=== PATIENT | female | born 1935 | race Caucasian/White ===

== ENCOUNTER → 2016-07-15 | Outpatient (CLI) | payer MEDICARE, OTHER | END | disposition home or self-care (01) | LOC: GMAL 10:08 | PROVIDERS: ATTEND Family Medicine | DX: R53.83 Other fatigue (principal); D51.3 Other dietary vitamin B12 deficiency anemia; E55.9 Vitamin D deficiency, unspecified ==

== ENCOUNTER 2016-10-29 08:08 | Inpatient (IN) | payer MEDICARE, OTHER ==
[2016-10-29] MEDS ORDERED: HYDROmorphone HCL INJ 2 MG/ML VIAL IV ONE (08:46)
--- NOTE | 2016-10-29 09:40 | ED.PDOC ---
History of Present Illness - General Chief Complaint: Trauma Stated Complaint: left hip pain Time Seen by Provider: 10/29/16 08:11 Source: patient, family Exam Limitations: no limitations - History of Present Illness Initial Comments: the patient is a 81-year-old female presenting to the emergency room secondary to a fall at home with significant left hip pain. The patient simply tripped and fell. No syncope. No other areas of pain. The patient is drowsy upon arrival due to pain medications given by EMS. No obvious other injuries. Timing/Duration: momentarily Severity: severe Improving Factors: nothing Worsening Factors: nothing Associated Symptoms: denies symptoms Allergies/Adverse Reactions: Allergies NO KNOWN ALLERGY Allergy (Verified 10/29/16 08:46) Review of Systems - Review of Systems Constitutional: States: no symptoms reported EENTM: States: no symptoms reported Respiratory: States: no symptoms reported Cardiology: States: no symptoms reported Gastrointestinal/Abdominal: States: no symptoms reported Genitourinary: States: no symptoms reported Musculoskeletal: States: see HPI Skin: States: no symptoms reported Neurological: States: no symptoms reported Endocrine: States: no symptoms reported Hematologic/Lymphatic: States: no symptoms reported All other Systems: No Change from Baseline Past Medical History (General) - Patient Medical History Surgical History: other Family Medical History - Family History Mother Family History: Unknown Physical Exam - Physical Exam General Appearance: Other - she is drowsy but easily awakened and oriented Eye Exam: bilateral normal Ears, Nose, Throat: hearing grossly normal, normal ENT inspection, normal pharynx Neck: non-tender, full range of motion, supple Respiratory: chest non-tender, lungs clear, normal breath sounds, no respiratory distress, no accessory muscle use Cardiovascular/Chest: normal peripheral pulses, no edema, other - egular rate Peripheral Pulses: radial,right: 2+, radial,left: 2+, dorsalis pedis,right: 2+, dorsalis pedis,left: 2+, posterior tibialis,right: 2+, posterior tibialis,left: 2+ Gastrointestinal/Abdominal: non tender, soft Rectal Exam: deferred Back Exam: normal inspection, no CVA tenderness, no vertebral tenderness Extremity: no pedal edema, no calf tenderness, normal capillary refill, other - there is slight shortening and external rotation of the left lower extremity. She has pain over the left hip. No laceration. 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 The patient will be admitted for surgical repair tomorrow. Pain control will obviously be required. She appears to be neurovascularly preserved at this time. - Results/Orders Results/Orders: Laboratory Last Values WBC 8.4 K/mm3 (4.8-10.8) 10/29/16 09:15 RBC 4.46 M/mm3 (4.20-5.40) 10/29/16 09:15 Hgb 12.8 gm/dL (12.0-16.0) 10/29/16 09:15 Hct 39.4 % (36.0-47.0) 10/29/16 09:15 MCV 88.5 fl (81.0-99.0) 10/29/16 09:15 MCH 28.8 pg (27.0-31.0) 10/29/16 09:15 MCHC 32.5 g/dL (33.0-37.0) L 10/29/16 09:15 RDW 14.4 % (11.5-14.5) 10/29/16 09:15 Plt Count 220 K/mm3 (130-400) 10/29/16 09:15 MPV 7.0 fl (7.40-10.4) L 10/29/16 09:15 Absolute Neuts (auto) 6.40 K/uL (1.8-6.8) 10/29/16 09:15 Absolute Lymphs (auto) 1.40 K/uL (1.0-3.4) 10/29/16 09:15 Absolute Monos (auto) 0.50 K/uL (0.2-0.8) 10/29/16 09:15 Absolute Eos (auto) 0.10 K/uL (0.0-0.4) 10/29/16 09:15 Absolute Basos (auto) 0.00 K/uL (0.0-0.1) 10/29/16 09:15 Neutrophils % 76.4 % (42.0-78.0) 10/29/16 09:15 Lymphocytes % 16.7 % (20.0-50.0) L 10/29/16 09:15 Monocytes % 5.5 % (2.0-9.0) 10/29/16 09:15 Eosinophils % 1.0 % (1.0-5.0) 10/29/16 09:15 Basophils % 0.4 % (0.0-2.0) 10/29/16 09:15 PT 10.9 SECONDS (9.4-12.5) 10/29/16 09:15 INR 0.960 10/29/16 09:15 PTT (SP) 30.3 SECONDS (25.1-36.5) 10/29/16 09:15 Sodium 143 mmol/L (135-145) 10/29/16 09:15 Potassium 4.4 mmol/L (3.6-5.0) 10/29/16 09:15 Chloride 106 mmol/L (101-111) 10/29/16 09:15 Carbon Dioxide 28 mmol/L (21-31) 10/29/16 09:15 Anion Gap 13.4 (12-18) 10/29/16 09:15 BUN 18 mg/dL (7-18) 10/29/16 09:15 Creatinine 0.78 mg/dL (0.6-1.3) 10/29/16 09:15 BUN/Creatinine Ratio 23.1 (10-20) H 10/29/16 09:15 Random Glucose 109 mg/dL (70-105) H 10/29/16 09:15 Serum Osmolality 287.5 mOsm/L (275-295) 10/29/16 09:15 Calcium 8.6 mg/dL (8.4-10.2) 10/29/16 09:15 Total Bilirubin 0.8 mg/dL (0.2-1.0) 10/29/16 09:15 AST 17 IU/L (10-42) 10/29/16 09:15 ALT 10 IU/L (10-60) 10/29/16 09:15 Alkaline Phosphatase 64 IU/L (42-121) 10/29/16 09:15 Serum Total Protein 7.2 gm/dL (6.4-8.2) 10/29/16 09:15 Albumin 4.0 g/dl (3.2-5.5) 10/29/16 09:15 Globulin 3.2 gm/dL (2.3-3.5) 10/29/16 09:15 Albumin/Globulin Ratio 1.3 (1.1-1.9) 10/29/16 09:15 x-ray of the left hip shows a proximal left femur fracture. I see no obvious pelvic fractures. Final read on x-rays are pending due to technical difficulties. Departure - Departure Clinical Impression: Fracture of femur Qualifiers: Encounter type: initial encounter Femur location: intertrochanteric Fracture type: closed Fracture alignment: displaced Laterality: left Qualified Code(s): S72.142A - Displaced intertrochanteric fracture of left femur, initial encounter for closed fracture Disposition: Admit Patient Referrals: Stanislaw Caballero III, MD [Primary Care Provider] - 1-2 Weeks Decision To Admit - Decistion To Admit Decision to Admit Reason: Accidental Injury Decision to Admit Date: 10/29/16 Decision to Admit Time: 09:42
--- NOTE | 2016-10-29 10:54 | HP ---
SUPERVISING PHYSICIAN: Srinivas Patel M.D. CHIEF COMPLAINT: Left hip pain. HISTORY OF PRESENT ILLNESS: This is an 81 year-old female patient who presented to the Emergency Room after falling in her bedroom and having significant left hip pain. This morning about 7:00 AM she got up from her bed and went to her bathroom, and as she was coming back to the bed, she stepped on her 's golf shoes and she fell against the bed and then fell onto the floor. She had significant pain in the left hip. Her called 911 and she was brought to the Emergency Room. In the Emergency Room, her CBC was within normal limits with the exception of her MCHC was 32.5 and her chemistry was also basically within normal limits with the exception of her glucose was slightly elevated at 109. Coags were within normal limits. Hip x-ray per radiology interpretation shows a subcapital left femoral neck fracture noted with approximately 2 cm of proximal displacement of the distal fracture fragment. Dr. Bay was called from the Emergency Room and he agreed to perform surgery tomorrow morning. I was called for hospital admission. PAST MEDICAL HISTORY: 1. Aortic stenosis of mild severity diagnosed in July 2016. 2. Essential tremor. 3. History of detached retina. 4. Broken right wrist. 5. Fractured left forearm. PAST SURGICAL HISTORY: 1. Detached retina surgery in the . 2. Elbow fracture repair in 2012. OUTPATIENT MEDICATIONS: 1. Gabapentin. 2. Alprazolam. ALLERGIES: NO KNOWN DRUG ALLERGIES. SOCIAL HISTORY: She is retired. She is . She has 4 children. She denies any tobacco, ETOH or illicit drug use. REVIEW OF SYSTEMS: Negative with the exception of her left hip pain and as per the History of Present Illness. PHYSICAL EXAMINATION: VITAL SIGNS: Temperature 97.4, pulse rate 76, blood pressure 128/70, respiratory rate 16, O2 sat is 96% on 1 liter nasal cannula. GENERAL: This is an 81 year-old female patient who is lying in her hospital bed. She is in no acute distress. HEENT: Normocephalic and atraumatic. Pupils are equal and reactive. Oropharynx is clear. NECK: Supple without mass. CHEST: Clear to auscultation bilaterally. There is equal rise and fall of the chest with inspiration and expiration. CARDIOVASCULAR: Regular rate and rhythm. ABDOMEN: Soft, nondistended, non-tender. Bowel sounds are positive. EXTREMITIES: No cyanosis, clubbing or edema. She is tender along the left lateral hip that extends to the posterior buttocks region. There is no swelling or edema noted. NEUROLOGIC: She is awake, alert and oriented times three. LABORATORY: Labs and films are as per the history of present illness. ASSESSMENT: 1. Subcapital left femoral neck fracture with approximately 2 cm of proximal displacement of the distal fracture fragment. 2. Essential tremors. 3. Mild aortic stenosis. PLAN: We will admit the patient to the hospital. I have initiated her preoperative orders for Dr. Bay's orthopedic surgery. I have restarted her home medications. She will go to surgery tomorrow morning. We will continue to monitor closely and followup as needed. Dr. Bay has been consulted. Dr. Patel is the collaborating physician and available for consultation. #[id number] [facility]
--- NOTE | 2016-10-29 11:52 | RAD ---
Frontal view pelvis. Frontal and frog lateral views left hip. Indication: fall with pain Comparison: None. Impression: Subcapital left femoral neck fracture noted with approximately 2 cm of proximal displacement of the distal fracture fragment. Moderate bilateral hip osteoarthritis. Prominent bilateral greater trochanter enthesophyte formation. Mild osteoarthritis bilateral sacral iliac joint. Osteopenia. If this is a new finding, DEXA scan recommended as well as evaluation for possible osteoporosis treatment. Electronically signed by: Riaz Vega MD 10/29/2016 11:49 AM CDT
[2016-10-29] MEDS ORDERED: SODIUM CHLORIDE 0.9% (FLUSH) 10 ML SYG IV PRN (12:41)
[2016-10-29] MEDS: PANTOPRAZOLE SODIUM IV 40 MG VIAL IV SCH (12:59)
[2016-10-29] MEDS: HYDROmorphone HCL INJ 2 MG/ML VIAL IV PRN ×2 (13:00→22:27)
[2016-10-29] MEDS: IV SET AND CAP CHANGE INJ INJ SCH (13:01)
[2016-10-29] MEDS: ALPRAZolam 0.5 MG TAB PO SCH ×3 (13:01→21:21)
[2016-10-29] MEDS: GABAPENTIN 300 MG CAP PO SCH ×3 (13:01→21:21)
[2016-10-29] MEDS: ONDANSETRON INJ 4 MG/2 ML VIAL IV PRN (18:02)
[2016-10-29] MEDS: LACTATED RINGERS 1,000 ML IVS PRN (20:13)
[2016-10-30] MEDS ORDERED: HYDROmorphone HCL INJ 2 MG/ML VIAL IV ONE (01:21)
[2016-10-30] MEDS ORDERED: HYDROmorphone HCL INJ 2 MG/ML VIAL IV PRN (02:02)
[2016-10-30] MEDS ORDERED: ceFAZolin SODIUM 1 GM VIAL ONE ×4 (03:00→19:38)
[2016-10-30] MEDS ORDERED: SODIUM CHLORIDE 0.9% 100ML 100 ML IVPB ONE ×3 (03:00→19:38)
[2016-10-30] MEDS ORDERED: VANCOMYCIN HCL INJ 1,000 MG VIAL IVPB ONE ×4 (03:00→19:39)
[2016-10-30] MEDS ORDERED: SODIUM CHLORIDE 0.9% 250ML 250 ML ONE ×3 (03:00→19:39)
[2016-10-30] MEDS: LACTATED RINGERS 1,000 ML IVS PRN ×2 (05:03→18:17)
[2016-10-30] MEDS ORDERED: ceFAZolin SODIUM 2 GM in SODIUM CHLORIDE 0.9% 100ML 100 ML IVPB ONE (06:00)
[2016-10-30] MEDS ORDERED: VANCOMYCIN HCL INJ 1,000 MG in SODIUM CHLORIDE 0.9% 250ML 250 ML IVPB ONE (06:00)
[2016-10-30] MEDS ORDERED: MORPHINE SULF *EPIDURAL* 1 MG/ML VIAL ONE (06:10)
[2016-10-30] MEDS ORDERED: fentaNYL CITRATE INJ 50 MCG/ML AMP ONE (06:10)
[2016-10-30] MEDS ORDERED: ROCURONIUM BROMIDE 10 MG/ML VIAL ONE (06:11)
[2016-10-30] MEDS ORDERED: ELECTROLYTE-A 1,000 ML IVS ONE (06:11)
[2016-10-30] MEDS ORDERED: LIDOCAINE 1% 10 ML VIAL INJ ONE (07:00)
[2016-10-30] MEDS ORDERED: PROPOFOL 200 MG/20 ML VIAL IV ONE (07:00)
[2016-10-30] MEDS ORDERED: VANCOMYCIN HCL INJ 1,000 MG in SODIUM CHLORIDE 0.9% 250ML 250 ML IVPB SCH (07:00)
[2016-10-30] MEDS ORDERED: NEOSTIGMINE METHYLSULFATE 1 MG/ML ML IV ONE (07:00)
[2016-10-30] MEDS ORDERED: ePHEDrine SULF 50 MG/ML ONE (07:00)
[2016-10-30] MEDS ORDERED: ATROPINE SULFATE 0.4 MG/ML 1ML VIAL ONE (07:00)
[2016-10-30] MEDS ORDERED: CEFAZOLIN SODIUM IVPB SCH (07:00)
[2016-10-30] MEDS ORDERED: SODIUM CHLORIDE 0.9% IVPB SCH (07:00)
[2016-10-30] MEDS ORDERED: BUPIVACAINE 0.25% W/EPI 50 ML VIAL INJ ONE (08:58)
[2016-10-30] MEDS ORDERED: FUROSEMIDE INJ 40 MG/4 ML VIAL ONE (09:28)
[2016-10-30] MEDS: GABAPENTIN 300 MG CAP PO SCH ×4 (09:33→20:05)
[2016-10-30] MEDS: ALPRAZolam 0.5 MG TAB PO SCH ×4 (09:34→20:05)
[2016-10-30] MEDS ORDERED: MORPHINE SULFATE INJ 10 MG/ML VIAL ONE (10:20)
[2016-10-30] MEDS ORDERED: MORPHINE SULFATE INJ 10 MG/ML VIAL IV ONE ×2 (10:25→10:38)
--- NOTE | 2016-10-30 10:33 | RAD ---
Left hip two views INDICATION: Hip arthroplasty IMPRESSION: No evidence of complicating process status post left hip arthroplasty. Electronically signed by: Phoenix Tee MD 10/30/2016 10:32 AM CDT
--- NOTE | 2016-10-30 10:38 | RAD ---
Pelvis one view INDICATION: Hip replacement IMPRESSION: Advanced osteoarthrosis right hip. Status post left hip arthroplasty. No evidence of complicating process. Electronically signed by: Phoenix Tee MD 10/30/2016 10:36 AM CDT
[2016-10-30] MEDS ORDERED: PROMETHAZINE HCL INJ 12.5 MG in SODIUM CHLORIDE 0.9% 50ML 50 ML IVPB PRN (13:05)
[2016-10-30] MEDS ORDERED: HYDROcodone 5MG/APAP 325MG 1 EA TAB PO PRN (13:05)
[2016-10-30] MEDS ORDERED: MORPHINE SULFATE INJ 10 MG/ML VIAL IV PRN (13:05)
[2016-10-30] MEDS ORDERED: NALOXONE HCL INJ 0.4 MG/ML VIAL IV PRN (13:05)
[2016-10-30] MEDS ORDERED: HYDROcodone 10MG/APAP 325MG 1 EA TAB PO PRN (13:05)
[2016-10-30] MEDS ORDERED: MORPHINE SULFATE INJ 10 MG/ML VIAL IM PRN (13:05)
[2016-10-30] MEDS ORDERED: ACETAMINOPHEN 500 MG TAB PO PRN (13:05)
--- NOTE | 2016-10-30 13:09 | OP ---
DATE OF PROCEDURE: 10/30/16 PREOPERATIVE DIAGNOSIS: 1. Left hip fracture. POSTOPERATIVE DIAGNOSIS: 1. Left femoral neck fracture. PROCEDURE: 1. Left hemiarthroplasty. SURGEON: Reji Bay MD. INJURY/SAFETY HAZARD ASSESSMENT: Alex Plata CST SA-Marcos. ANESTHESIA: General. COMPLICATIONS: None. FINDINGS: Transcervical femoral neck fracture. INDICATION: Ms. Lira is an 81-year-old female with a history of fracture of the femoral neck. This occurred secondary to a fall that she had on the day of presentation. She was seen in the Emergency Room and admitted. We discussed with her the risks, benefits and alternatives to operative therapy for this and informed consent was obtained. PROCEDURE: The patient was brought to the Operating Room and placed in supine position. Anesthesia was induced and the patient was transitioned into the lateral decubitus position. The leg and hemipelvis were sterilely prepped and draped and an incision was made centered on the greater trochanter with extension both proximally and distally. Dissection was carried down to the iliotibial band which was sharply incised along the course of its fibers. A Charnley retractor was placed and the abductor musculature was identified. The anterior one-third of the abductor musculature was elevated off the greater trochanter using electrocautery and the capsule was incised. The femoral head was removed and the primary femoral neck cut was made. The acetabulum was examined and found to be free of any significant defect, therefore attention was focused on the femur. The femoral canal was sequentially broached until an appropriate sized trial prosthesis was placed. A trial femoral head was placed and the hip was reduced. The hip was taken through a full range of motion and demonstrated stability without impingement or pending dislocation and the leg length appeared to be paresthesias. Following trialing, the trial component was removed and the femoral canal was prepared for cementation of the prosthesis. A distal cement restrictor was placed and the final component was cemented into place. The excess cement was removed and the remaining cement was allowed to cure. The final head was impacted and the hip was reduced, taken through a full range of motion, and found to be stable without impingement. The wound was thoroughly irrigated and the abductor musculature was reapproximated to the greater trochanter through drill holes using Ethibond. The repair was augmented with PDS suture and the iliotibial band was subsequently closed. The subcutaneous tissues were closed with a combination of running and interrupted subcuticular stitches, a sterile dressing was placed , and the patient was transitioned into the supine position. The patient was awoken from anesthesia and taken to the Recovery Room in stable condition. POSTOPERATIVE INSTRUCTIONS: She will be weight-bearing as tolerated on postoperative day 1. COMPONENTS: [employer]ree [employer] cemented stem, size 7, 49 mm head. #[id number] MTDD
--- NOTE | 2016-10-30 13:14 | CONS ---
CHIEF COMPLAINT: Left hip pain. HISTORY OF PRESENT ILLNESS: Ms. Lira is an 81-year-old female with a history of pain secondary to a fall about 7 AM yesterday. Ms. Lira had the acute onset of pain in the hip. She was brought to the Emergency Room and x-rays revealed a fracture of the hip. She denies any other injury associated with this, denies any radiation of pain, and denies any neurologic symptoms. PAST SURGICAL HISTORY: 1. Repair of detached retina. 2. Open reduction and internal fixation of elbow fracture. MEDICATIONS: 1. Gabapentin. 2. Alprazolam. ALLERGIES: NO KNOWN DRUG ALLERGIES. SOCIAL HISTORY: The patient does not drink, smoke or use any illicit drugs. FAMILY HISTORY: None pertinent to today's complaint. REVIEW OF SYSTEMS: Negative except as indicated in the History of Present Illness. PHYSICAL EXAMINATION: VITAL SIGNS: Blood pressure 128/70. Pulse 76. Temperature 97.4. O2 saturation 96% on 1 liter. Respirations 16. MENTAL STATUS: The patient is awake, alert, and is able to give a good history and participate in the physical. The patient is oriented to person, place and time. SKIN: Normal tone and turgor. HEENT: Normocephalic, atraumatic. Pupils equal, round and reactive. Mucosal membranes are moist. NECK: Normal range of motion. No thyromegaly, no lymphadenopathy. CHEST: Normal respiratory excursion. CARDIAC: Regular rate and rhythm. No murmurs, rubs or gallops. MUSCULOSKELETAL: The bilateral upper extremities show full active range of motion without pain. She has intact sensation and the extremities are warm and well perfused. Strength is 5/5. There is no deformity. The right lower extremity shows no deformity. Sensation is intact. It is warm and well perfused. Strength is 5/5 in plantar flexion. The left lower extremity shows pain with attempted range of motion. The sensation is intact. It is warm and well perfused. She has not got any significant deformity. IMAGING: X-rays show a fracture of the femoral neck. ASSESSMENT: 1. Femoral neck fracture. PLAN: The plan at this point is for her to undergo hemiarthroplasty. We have discussed the risks, benefits, and alternatives to that and the patient has given informed consent. #[id number] [facility]
[2016-10-30] MEDS ORDERED: MORPHINE PCA 1 MG/ML 100ML 1 BAG in PREMIX BAG 1 BAG IVPB SCH (13:30)
--- NOTE | 2016-10-30 13:52 | PN ---
DATE: 10/30/16 SUBJECTIVE: The patient is now postoperative surgical repair with a left hemiarthroplasty for an acute fracture of the left femur. She apparently tripped over some golf shoes in front of a chair when she fell with no loss of consciousness. She was subsequently evaluated and orthopedic procedures used to repair by Dr. Bay. The patient tolerated the procedures quite well and she is now alert and awake postoperatively with minimal memory of the experience. Her pain control and ongoing rehabilitation is our next priority as well as DVT prophylaxis. OBJECTIVE: VITAL SIGNS: Afebrile. Pulse 93. Blood pressure 105/67. Pulse oximetry 96% on 2 liters. GENERAL: The patient is sitting up in the bed with left hip dressed with no bleeding into the dressing at this time. No shortness of breath. The patient is awake, alert, oriented and communicative. She is a little bit hungry, but is going to go light on her dietary intake tonight and advance tomorrow as tolerated. Pain is somewhat relieved nicely by the morphine administration. CURRICULUM DEVELOPER pump as well as SCD for prophylaxis will continue. She tolerated the procedure quite well. X-rays postoperatively showed good placement of the hemiarthroplasty, left hip. Urinalysis earlier today did reveal evidence of a probable urinary tract infection. The patient is continued on vancomycin and cephalosporin until tomorrow at which time we hope to have culture results so that we will be able to continue treatment course for underlying urinary tract infection. ASSESSMENT: 1. Acute subcapital left femoral neck fracture with an approximate 2 cm proximal displacement of the distal fracture fragment requiring surgical repair with left hemiarthroplasty, successfully performed by Dr. Bay, orthopedic surgery, earlier today. 2. History fo essential tremors. 3. History of mild aortic stenosis, recently diagnosed. 4. Acute fall resulting from tripping on some shoes on the floor, resulting in the left femoral neck fracture. PLAN: Continue with physical therapy and orthopedic supervised rehabilitation in the postoperative period. The patient will be continued on CURRICULUM DEVELOPER pump with SCD. We will start Lovenox 12 hours after surgery. Slowly advance diet. Observe closely and increase rehab to the point she will be able to safely return home. #[id number] [facility]
[2016-10-30] MEDS ORDERED: ceFAZolin SODIUM 1 GM in SODIUM CHL 0.9% 50ML MIN-BAG+ 50 ML IVPB SCH (16:00)
[2016-10-30] MEDS: ceFAZolin SODIUM 2 GM in SODIUM CHLORIDE 0.9% 100ML 100 ML IVPB SCH (16:28)
[2016-10-30] MEDS: PANTOPRAZOLE SODIUM IV 40 MG VIAL IV SCH (17:29)
[2016-10-30] MEDS: VANCOMYCIN HCL INJ 1,000 MG in SODIUM CHLORIDE 0.9% 250ML 250 ML IVPB SCH (18:16)
[2016-10-30] MEDS ORDERED: DOCUSATE CALCIUM 240 MG CAP ONE (19:37)
[2016-10-30] MEDS ORDERED: ENOXAPARIN SODIUM 30 MG/0.3 ML SYG SUBCU ONE (19:37)
[2016-10-30] MEDS: DOCUSATE CALCIUM 240 MG CAP PO SCH (20:05)
[2016-10-30] MEDS ORDERED: ENOXAPARIN SODIUM 30 MG/0.3 ML SYG SUBCU SCH (21:00)
[2016-10-30] MEDS: ENOXAPARIN SODIUM 30 MG/0.3 ML SYG SUBCU SCH (22:22)
[2016-10-31] MEDS: ceFAZolin SODIUM 2 GM in SODIUM CHLORIDE 0.9% 100ML 100 ML IVPB SCH ×2 (00:01→08:19)
[2016-10-31] MEDS: LACTATED RINGERS 1,000 ML IVS PRN (05:44)
[2016-10-31] MEDS: VANCOMYCIN HCL INJ 1,000 MG in SODIUM CHLORIDE 0.9% 250ML 250 ML IVPB SCH (05:48)
[2016-10-31] MEDS ORDERED: ceFAZolin SODIUM 1 GM VIAL ONE (07:46)
[2016-10-31] MEDS ORDERED: SODIUM CHLORIDE 0.9% 100ML 100 ML IVPB ONE (07:46)
[2016-10-31] MEDS: GABAPENTIN 300 MG CAP PO SCH ×3 (08:21→17:28)
[2016-10-31] MEDS: ALPRAZolam 0.5 MG TAB PO SCH ×3 (08:21→17:29)
[2016-10-31] MEDS: MAGNESIUM OXIDE 400 MG TAB PO SCH (08:21)
[2016-10-31] MEDS: ENOXAPARIN SODIUM 30 MG/0.3 ML SYG SUBCU SCH ×2 (10:34→21:22)
[2016-10-31] MEDS ORDERED: MEROPENEM 500 MG VIAL IVPB ONE ×2 (11:59→19:46)
[2016-10-31] MEDS ORDERED: SODIUM CHL 0.9% 50ML MIN-BAG+ 50 ML IVPB ONE ×2 (11:59→19:45)
[2016-10-31] MEDS: MEROPENEM 500 MG in SODIUM CHL 0.9% 50ML MIN-BAG+ 50 ML IVPB SCH ×2 (12:04→20:21)
[2016-10-31] MEDS: ONDANSETRON INJ 4 MG/2 ML VIAL IV PRN (12:05)
--- NOTE | 2016-10-31 12:47 | PN ---
DATE: 10/30/16 SUBJECTIVE: Ms. Lira is doing well. She is not having any pain right now. OBJECTIVE: She is afebrile. Vital signs are stable. Dressing is clean, dry and intact. ASSESSMENT: 1. Status post hemiarthroplasty. PLAN: The plan is to begin weightbearing as tolerated on postoperative day 1. #[id number] [facility]
--- NOTE | 2016-10-31 13:19 | PN ---
DATE: 10/31/16 SUBJECTIVE: Ms. Lira right now is doing well. OBJECTIVE: She did have a period this morning with some low blood pressure and accompanying delirium. At this point, her blood pressure was returned to normal and she is fully coherent, and answering all questions appropriately. Her dressing right now is clean, dry and intact. She is afebrile and heart rate has returned to normal. Hemoglobin this morning was approximately 10. She has received a bolus of fluid and Dr. Perry is also consulting on her. ASSESSMENT: 1. Status post hemiarthroplasty. 2. Hypotension. PLAN: At this point, she has returned to normal with regards to her blood pressure, but will continue to monitor that. Dr. Perry will also intervene and make any suggestions necessary. Otherwise we are going to continue with her weightbearing status and we are going to get her out of bed today if her situation continues to allow. #[id number] [facility]
[2016-10-31] MEDS ORDERED: DEX 5% W/NACL 0.45% 1000ML 1,000 ML IVS PRN ×2 (13:23→19:43)
--- NOTE | 2016-10-31 13:35 | PN ---
DATE: 10/31/16 SUBJECTIVE: The patient was feeling fairly well and was able to get up with physical therapist earlier today and transfer from the bed to a chair. She spent the remainder of the morning in the chair. Evidence of a significant urinary tract infection with gram-negative rods, possible Klebsiella species which have been noted to have fairly significant resistance with final identification still pending. She was started on Merrem on a every 8 hours basis and approximately 10 to 15 minutes after the starting of the Merrem after 12:00 today while sitting in the chair she felt like she was floating and almost ready to pass out. She became somewhat confused and lost some of her level of alertness. She was mildly nauseated. At the time, her blood pressure was taken and it was noted to be very low in the 80s. She was subsequently helped back into the bed with her feet elevated and started to feel a little bit better, but only after a fairly significant volume of fluid was given as a bolus to assist with blood pressure sustenance. OBJECTIVE: LUNGS: Clear. HEART: Tones regular. ABDOMEN: Soft. Less nausea was noted. She became fully awake and alert, and was feeling a little bit better and her blood pressure was soon up to 97 systolic. Her blood pressure has been around 100 to 105 systolic since her surgery. The incision appears to be healing with no significant drainage onto the dressing of her hip surgery. LABORATORY: Significant anemia with her hemoglobin dropping preoperatively from 12.8 down to 9.8 is noted or about 25% of her blood volume. Chemistries were done yesterday and not today, but will be repeated tomorrow. Culture of the urine did show greater than 100,000 colony counts of gram-negative rods presumptively a Klebsiella species but with final identification and sensitivities hopefully available either later today or in the morning. ASSESSMENT: 1. Postoperative day number 1 of left hemiarthroplasty for an acute subcapital fracture of the left femoral neck. 2. Chronic tremor. 3. Significant anemia with normocytic normochromic presentation suggesting an acute blood loss from the hip fracture with further followup necessary. 4. History of mild aortic stenosis recently diagnosed. 5. Acute fall resulting from tripping on some shoes on the floor resulting in the left femoral subcapital neck fracture. 6. Acute hypotensive episode noted within minutes of the initiation of the Merrem antibiotic for gram-negative eleuterio urinary tract infection. This is reminiscent of a Herxheimer reaction which will have continued followup with increased fluids as well as close observation on her second dose in about 8 hours. PLAN: Will continue close observation and physical therapy rehabilitation under Physical Therapy and Orthopedic Surgery supervision. Will continue with an IV bolus of the lactated ringers. Repeat lab in the morning for followup. Continue treatment of the potential Klebsiella urinary tract infection which hopefully will not have similar reactions as treatment course continues and the bacterial populations have been significantly reduced. Repeat tilt vitals in approximately an hour after her last dose of the antibiotics. #[id number] [facility]TD[facility]
[2016-10-31] MEDS: OMEPRAZOLE CAP 20 MG CAP PO SCH (15:01)
[2016-10-31] MEDS: PANTOPRAZOLE SODIUM IV 40 MG VIAL IV SCH (15:07)
[2016-10-31] MEDS ORDERED: FUROSEMIDE INJ 20 MG/2 ML VIAL ONE (20:00)
[2016-10-31] MEDS ORDERED: FUROSEMIDE INJ 20 MG/2 ML VIAL IV SCH (20:00)
[2016-10-31] MEDS: DOCUSATE CALCIUM 240 MG CAP PO SCH (21:22)
--- NOTE | 2016-10-31 21:23 | RAD ---
EXAM: Chest,1 View CLINICAL INDICATION: 81-year-old female with hypoxia. TECHNIQUE: Single view, AP portable chest was obtained. COMPARISON: None. FINDINGS: The patient is rotated slightly limiting evaluation of the cardiac mediastinal structures. Unremarkable cardiac and mediastinal silhouette. Heart size is normal. Lungs are clear without focal opacity, pneumothorax or pleural effusions. Bilateral linear basilar opacities may be secondary to consolidation, subsegmental atelectasis or scarring. Elevation of the RIGHT hemidiaphragm. The visualized bones reveal diffuse demineralization and degenerative change. IMPRESSION: Bilateral linear basilar opacities may be secondary to subsegmental atelectasis, scarring or consolidation. Please correlate with patient clinical findings and follow-up for resolution. Electronically signed by: Dominga Phillip MD 10/31/2016 9:21 PM CDT Workstation: [id number]
[2016-11-01] MEDS: OMEPRAZOLE CAP 20 MG CAP PO SCH (05:50)
[2016-11-01] MEDS ORDERED: SODIUM CHLORIDE 0.9% 500ML 500 ML ONE (07:37)
[2016-11-01] MEDS ORDERED: SODIUM CHLORIDE 0.9% 500ML 500 ML IVS PRN (07:45)
[2016-11-01] MEDS ORDERED: ACETAMINOPHEN 325 MG TAB PO ONE (08:00)
[2016-11-01] MEDS ORDERED: levoFLOXacin 500MG IV 100 ML IVPB ONE (08:02)
[2016-11-01] MEDS: levoFLOXacin 500MG IV 500 MG in PREMIX BAG 1 BAG IVPB SCH (08:06)
[2016-11-01] MEDS: ENOXAPARIN SODIUM 30 MG/0.3 ML SYG SUBCU SCH ×2 (08:50→21:39)
[2016-11-01] MEDS: GABAPENTIN 300 MG CAP PO SCH ×3 (08:50→20:27)
[2016-11-01] MEDS: MAGNESIUM OXIDE 400 MG TAB PO SCH (08:50)
[2016-11-01] MEDS: ALPRAZolam 0.5 MG TAB PO SCH ×3 (08:50→20:28)
--- NOTE | 2016-11-01 09:00 | PCM.CORE ---
Physician DVT/VTE - Prophylaxis Currently: Patient already on anticoagulation therapy - Nurse DVT Assessment & Total Each Risk Factor Represents 3 Points: Age over 75 years Each Risk Factor Represents 1 Point: Medical PT at Bed Rest DVT Assessment Score: 4 - 3-4 High Risk Treatments: Sequential Compression Device
[2016-11-01] MEDS ORDERED: FUROSEMIDE INJ 20 MG/2 ML VIAL IV ONE ×2 (10:30→17:00)
--- NOTE | 2016-11-01 12:50 | PN ---
DATE: 11-01-16 SUBJECTIVE: The patient is currently second day after hemiarthroplasty repair for a left subcapital femoral neck fracture suffered in a fall when she tripped. She is currently having issues with confusion, disorientation to place and time. Her coloration has become more pale as her anemia has progressed. This morning, she seems to be more alert than she was at times during the night. Significant urinary tract infection with Klebsiella was evident and was treated yesterday with results of a significant hypotensive shock state possibly a Herxheimer reaction which she has subsequently stabilized but may be contributing to some of her confusion. Final ID revealed Klebsiella pneumonia and sensitivity shows that she can be on fluoroquinolone instead of the Meropenem which is changed at this time. Dr. Bay is closely monitoring her orthopedic status as well. OBJECTIVE: VITAL SIGNS: Afebrile, pulse 81. Blood pressure 92/59 with her normal blood pressure being in the 110s and 120s. Pulse oximetry 100% on two liters showing an improved oxygenated status. Will decrease the oxygen in order to maintain a 93 to 94% as requested in the orders. She was noted to have had a significant fluid challenge postoperatively, especially in an attempt to reverse some of the hypotensive response but in the process could not put out a lot of urine which is being addressed at this time, especially also with some fluid vascular expanders with packed red blood cells being given at this time because of significant anemia. At this time, she is well oriented and knows where she is but does feel quite weak. Because of her rehab potential being decreased because of the significant anemia and her mental status showing some changes, we will give some packed red blood cells in an effort to improve her hemodynamic status. ASSESSMENT: 1. Postoperative day number 2, left hemiarthroplasty for an acute subcapital fracture of the left femoral neck. 2. Significant anemia postoperatively with a normocytic normochromic presentation suggesting blood loss from the hip fracture with red blood cell 2-unit packed cells given to assist with improvement to allow her to more adequately and safely participate in her rehabilitation. 3. History of chronic tremor. 4. History of mild aortic stenosis recently diagnosed. 5. Acute fall resulting from tripping on some shoes on the floor resulting in the left femoral subcapital neck fracture. 6. Persistence of some hypotensive episodes possibly related to blood loss after the hip fracture as well as the significant urinary tract infection with Klebsiella pneumonia requiring parenteral therapy changed from Merrem to Levaquin. . PLAN: Continue current treatment program with 2 units of packed red blood cells infusing. Continue more active physical therapy rehabilitation in the morning when more hemodynamically stable. Continue close observation and management. May require Swing Bed rehabilitation to assist with strengthening before she will be able to safely return home. Observe blood pressure closely. #[id number] [facility]
--- NOTE | 2016-11-01 13:38 | PN ---
DATE: 11-01-16 SUBJECTIVE: Ms. Lira from a symptomatic standpoint is doing well with regards to her hip. Her pain is significantly decreasing and she is using minimal pain medications. OBJECTIVE: She did run a fever last night with a maximum of about 103 degrees. Urinalysis did show Klebsiella pneumoniae in the urine. Her wound today is clean, there are no signs or symptoms of infection, there is no drainage. ASSESSMENT: 1. Status post hemiarthroplasty. 2. Hypotension. 3. Urinary tract infection. PLAN: At this point, she is receiving blood for her hypotension. She is to continue on with antibiotics for her fever. With regards to her hip, we will continue on with weightbearing as tolerated and as her symptoms allow, we will let her out of bed and encourage ambulation. #[id number]. [facility]
[2016-11-01] MEDS ORDERED: FUROSEMIDE INJ 20 MG/2 ML VIAL ONE (13:47)
[2016-11-01] MEDS: IV SET AND CAP CHANGE INJ INJ SCH (14:36)
[2016-11-01] MEDS: BIFIDOBACTERIUM INFANTIS 4 MG CAP PO SCH ×2 (14:36→20:28)
[2016-11-01] MEDS ORDERED: VANCOMYCIN PER PHARMACY INJ SCH (15:00)
[2016-11-01] MEDS ORDERED: ceFAZolin SODIUM 2 GM in SODIUM CHLORIDE 0.9% 100ML 100 ML IVPB SCH (15:00)
[2016-11-01] MEDS ORDERED: SODIUM CHL 0.9% 50ML MIN-BAG+ 50 ML IVPB ONE ×2 (15:44→20:09)
[2016-11-01] MEDS ORDERED: ceFAZolin SODIUM 1 GM VIAL ONE ×2 (15:45→20:10)
[2016-11-01] MEDS: ceFAZolin SODIUM 1 GM in SODIUM CHL 0.9% 50ML MIN-BAG+ 50 ML IVPB SCH (15:57)
[2016-11-01] MEDS ORDERED: VANCOMYCIN HCL INJ 1,000 MG in SODIUM CHLORIDE 0.9% 250ML 250 ML IVPB SCH (16:00)
[2016-11-01] MEDS ORDERED: VANCOMYCIN HCL INJ 1,000 MG, VANCOMYCIN HCL INJ 250 MG in SODIUM CHLORIDE 0.9% 250ML 25... IVPB SCH (16:00)
[2016-11-01] MEDS ORDERED: VANCOMYCIN HCL INJ 500 MG VIAL ONE (16:34)
[2016-11-01] MEDS ORDERED: SODIUM CHLORIDE 0.9% 250ML 250 ML ONE (16:34)
[2016-11-01] MEDS ORDERED: VANCOMYCIN HCL INJ 1,000 MG VIAL IVPB ONE (16:35)
--- NOTE | 2016-11-01 16:50 | PN ---
DATE: 11/01/16 ADDENDUM TO PROGRESS NOTE 11/01/16 The patient is completing the second unit of packed red blood cells for significant postoperative anemia related to a traumatic left hip fracture. The patient has had a significant hypotensive response yesterday within 10 minutes of starting Meropenem for an apparent Klebsiella pneumoniae urinary tract infection. This could have been a Herxheimer reaction but also could have been contributed to by a combination of volume depletion. At the time, she had a low systolic in the 80s and persisted in the 90s with the pulse elevated. No specific shortness of breath was evident. No evidence of clinical DVT was noted in the lower extremities. She had a degree of hypoxia also as the afternoon progressed and after receiving fluids which were given for the purpose of helping to correct a volume depletion, these fluids earlier today were significantly decreased after a fairly significant positive input was noted with decreased urine output. It was at this point that her urine will continue to be monitored with frequent output because of her being incontinent of urine to allow us to better calculate her renal function. Howard catheter is inserted. IV solutions are changed to a buffer crystalloid to include D5 water with 75 mEq of sodium bicarbonate at a lower rate, but at a sustainable rate until she is able to increase some of her oral intake. This is in an effort to reduce the risk of a hyperchloremic metabolic acidosis potential. Urinary tract infection with Klebsiella pneumoniae is continued to be treated with Levaquin to which is added by Dr. Bay renal adjusted dosages of Ancef and vancomycin with adjustments of the dosing per Pharmacy protocol. The Ancef should be helpful in the treatment of the underlying Klebsiella infection. Laboratory studies performed earlier today were abnormal with creatinine up from 0.93 to 2.07 and BUN 23 up to 37. Her chloride stayed stable at 102. Glucose 155, calcium 7 with albumin 3.4 a couple of days previously. Beta natriuretic peptide is elevated at 800 again pointing to a relative fluid overload with adjustment of fluids accordingly. There is a discrepancy in her weight and nursing staff are endeavoring to correct that so that we can better analyze dosings of medications as well as fluid balance. Her requirement for oxygen has significantly decreased suggesting an improvement in pulmonary aeration. This has occurred after pulling back on fluid administration. It is of note that her CO2 is still within normal limits but it has dropped a little bit down to 25 and will be observed closely to rule out any early metabolic acidosis state. Reevaluation of laboratory parameters and hemodynamic status is to continue. [facility][id number] [facility]
[2016-11-01] MEDS: DOCUSATE CALCIUM 240 MG CAP PO SCH (20:28)
[2016-11-02] MEDS ORDERED: DEXTROSE 5% 1000ML 1,000 ML IVS ONE ×3 (00:25→13:47)
[2016-11-02] MEDS ORDERED: SODIUM BICARBONATE SYRINGE 50 MEQ/50 ML SYG IV ONE (00:25)
[2016-11-02] MEDS: SODIUM BICARBONATE SYRINGE 75 MEQ in DEXTROSE 5% 1000ML 1,000 ML IV PRN ×2 (00:32→13:54)
[2016-11-02] MEDS: ceFAZolin SODIUM 1 GM in SODIUM CHL 0.9% 50ML MIN-BAG+ 50 ML IVPB SCH ×2 (04:05→15:18)
[2016-11-02] MEDS ORDERED: CALCIUM GLUCONATE INJ 1 GM/10 ML VIAL IV ONE (06:13)
[2016-11-02] MEDS: OMEPRAZOLE CAP 20 MG CAP PO SCH (06:16)
[2016-11-02] MEDS ORDERED: MAGNESIUM HYDROXIDE 30 ML UD PO ONE ×2 (06:43→21:00)
[2016-11-02] MEDS ORDERED: SODIUM CHLORIDE 0.9% 50ML 50 ML ONE (06:52)
[2016-11-02] MEDS ORDERED: MAGNESIUM HYDROXIDE 30 ML UD PO PRN (06:59)
[2016-11-02] MEDS ORDERED: levoFLOXacin 500MG IV 100 ML IVPB ONE (07:50)
[2016-11-02] MEDS ORDERED: SODIUM CHL 0.9% 50ML MIN-BAG+ 50 ML IVPB ONE ×2 (07:50→19:37)
[2016-11-02] MEDS ORDERED: ceFAZolin SODIUM 1 GM VIAL ONE ×2 (07:51→19:39)
[2016-11-02] MEDS: levoFLOXacin 500MG IV 500 MG in PREMIX BAG 1 BAG IVPB SCH (08:44)
[2016-11-02] MEDS: BIFIDOBACTERIUM INFANTIS 4 MG CAP PO SCH ×2 (08:46→21:01)
[2016-11-02] MEDS: MAGNESIUM OXIDE 400 MG TAB PO SCH (08:46)
[2016-11-02] MEDS: ALPRAZolam 0.5 MG TAB PO SCH ×3 (08:47→21:00)
[2016-11-02] MEDS: GABAPENTIN 300 MG CAP PO SCH ×3 (08:47→21:00)
[2016-11-02] MEDS: ENOXAPARIN SODIUM 30 MG/0.3 ML SYG SUBCU SCH ×2 (10:04→21:01)
[2016-11-02] MEDS: DOCUSATE CALCIUM 240 MG CAP PO SCH (21:00)
[2016-11-02] MEDS ORDERED: BISACODYL SUPPOSITORY 10 MG PR ONE (21:00)
[2016-11-03] MEDS ORDERED: DEXTROSE 5% 1000ML 1,000 ML IVS ONE (00:40)
[2016-11-03] MEDS ORDERED: SODIUM BICARBONATE SYRINGE 50 MEQ/50 ML SYG IV ONE ×3 (00:40→00:43)
[2016-11-03] MEDS: SODIUM BICARBONATE SYRINGE 75 MEQ in DEXTROSE 5% 1000ML 1,000 ML IV PRN (00:49)
[2016-11-03] MEDS: ceFAZolin SODIUM 1 GM in SODIUM CHL 0.9% 50ML MIN-BAG+ 50 ML IVPB SCH ×2 (04:00→15:25)
[2016-11-03] MEDS: OMEPRAZOLE CAP 20 MG CAP PO SCH (06:12)
[2016-11-03] MEDS ORDERED: VANCOMYCIN HCL INJ 500 MG VIAL ONE (08:19)
[2016-11-03] MEDS ORDERED: SODIUM CHLORIDE 0.9% 250ML 0 ML ONE (08:20)
[2016-11-03] MEDS ORDERED: levoFLOXacin 250MG IV 50 ML IVPB ONE (08:20)
[2016-11-03] MEDS ORDERED: SODIUM CHL 0.9% 50ML MIN-BAG+ 50 ML IVPB ONE ×2 (08:20→19:45)
[2016-11-03] MEDS ORDERED: VANCOMYCIN HCL INJ 1,000 MG VIAL IVPB ONE (08:21)
[2016-11-03] MEDS ORDERED: ceFAZolin SODIUM 1 GM VIAL ONE ×2 (08:21→19:47)
--- NOTE | 2016-11-03 08:22 | PN ---
SUPERVISING PHYSICIAN: Derick Perry MD DATE: 11/02/16 SUBJECTIVE: The patient is feeling much better this morning after getting 2 units of packed red blood cells. She was actually up with physical therapy this morning. She does remain significantly weak. Vital signs remain stable. She remains with T-max of 100.5. She did have a bowel movement today and has had no nausea or vomiting. OBJECTIVE: VITAL SIGNS: T-max 100.5. Pulse 102. Blood pressure 96/62. Respirations 20. Saturation 94% on 2 liter nasal cannula at rest. I&Os show positive balance of 1261 with 1886 in and 625 out. Weight 87.9 kg. CHEST: Lungs clear to auscultation, just diminished towards the bases. HEART: Regular rate and rhythm. ABDOMEN: Obese, but soft and nontender. Positive bowel sounds. EXTREMITIES: No cyanosis, clubbing or edema. Incision on the left hip is clean and dry with minimal erythema noted. Distal pulses are strong. NEUROLOGIC: Alert and oriented times three. LABORATORY: White count remains within normal limits at 7.0. Hemoglobin is improved to 10.3, hematocrit 31.0, platelet count 131,000, differential shows a left shift. Chemistries show normal electrolytes with potassium 4.6, BUN elevated at 43, creatinine has gone up to 2.18 with glucose 158, calcium 6.6 but corrected for a low albumin at 2.7 to 7.6. C-reactive protein was 23.4 with BNP 964. RADIOLOGY: No additional radiographic studies are available for review. ASSESSMENT: 1. Postoperative day #3, left hemiarthroplasty for an acute subcapital fracture of the left femoral neck, status post same level fall. 2. Significant hypotensive event, possibly secondary to ongoing anemia with concerns for a reaction to meropenem versus reaction to gram negative toxins from antibiotic therapy with the patient having a urinary tract infection with gram negative eleuterio identified as Klebsiella pneumoniae. The patient is clinically stable after IV fluids and blood products. She remains on parenteral antibiotics to include cefazolin, vancomycin and Levaquin. 3. History of chronic tremor. 4. History of mild aortic stenosis recently diagnosed. 5. Acute same level fall resulting from tripping on shoes on the floor resulting in the left femoral subcapital neck fracture. 6. Urinary tract infection with Klebsiella pneumoniae identified requiring ongoing parenteral antibiotic therapy with the patient being transitioned to Levaquin after having a reaction to meropenem. PLAN: We will continue with current antibiotic therapy and physical therapy as she continues to clinical improve. We will anticipate discharge to Swing Bed in the near future at the discretion of physical therapy and Dr. Bay to ensure that when she does return home, she does so safely. We will continue to monitor and treat appropriately until discharge. [facility][id number] [facility]
[2016-11-03] MEDS ORDERED: levoFLOXacin 250MG IV 250 MG in PREMIX BAG 1 BAG IVPB SCH (09:00)
[2016-11-03] MEDS: ENOXAPARIN SODIUM 30 MG/0.3 ML SYG SUBCU SCH ×2 (09:16→21:02)
[2016-11-03] MEDS: MAGNESIUM OXIDE 400 MG TAB PO SCH (09:16)
[2016-11-03] MEDS: ALPRAZolam 0.5 MG TAB PO SCH ×3 (09:16→20:10)
[2016-11-03] MEDS: BIFIDOBACTERIUM INFANTIS 4 MG CAP PO SCH ×2 (09:16→20:10)
[2016-11-03] MEDS: GABAPENTIN 300 MG CAP PO SCH ×3 (09:16→20:10)
[2016-11-03] MEDS ORDERED: SODIUM CHLORIDE 0.9% (FLUSH) 10 ML SYG IV ONE (09:56)
--- NOTE | 2016-11-03 10:18 | PN ---
DATE: 11/02/16 SUBJECTIVE: Ms. Lira is having a little bit of confusion this morning. OBJECTIVE: Afebrile. Vital signs stable. The wound is clean. There are no signs or symptoms of infection. ASSESSMENT: Status post hemiarthroplasty. PLAN: We are going to continue to monitor her for any signs of worsening mental status. With regards to the hip, we will continue with weight-bearing as tolerated. #[id number] [facility]
--- NOTE | 2016-11-03 10:20 | PN ---
DATE: 11/03/16 SUBJECTIVE: Ms. Lira is much improved. She is completely lucid and is doing well without significant complaint. OBJECTIVE: Afebrile. Vital signs stable. The wound is clean. There are no signs or symptoms of infection. ASSESSMENT: Status post hemiarthroplasty. PLAN: At this point, she is able to participate fully in therapy and we will continue with therapy. [facility][id number] [facility]
[2016-11-03] MEDS: SODIUM CHLORIDE 0.9% (FLUSH) 10 ML SYG IV SCH ×2 (12:03→20:10)
--- NOTE | 2016-11-03 18:59 | PN ---
DATE: 11/03/16 SUPERVISING PHYSICIAN: Derick Perry M.D. SUBJECTIVE: The patient continues to progress well. She feels much better after she received 2 units of blood and has had good control of her pain. She has been afebrile for the last 24 hours. I discussed the fact that she is now up with Physical Therapy and has been on antibiotics for several days, removal of the catheter is warranted at this point. OBJECTIVE: VITAL SIGNS: T max 98.3, pulse 94, blood pressure 113/72, respirations 19, satting 99% on nasal cannula at rest. I's and O's show a negative balance of 1661 with 990 in, 2651 out. She did have 1 bowel movement. CHEST: Lungs are clear to auscultation bilaterally. HEART: Regular rate and rhythm. ABDOMEN: Obese but soft, non-tender. Positive bowel sounds. EXTREMITIES: There is no clubbing, cyanosis or edema to the lower extremities. There remains a dressing in place over the left hip. There is just some ecchymotic areas but no signs of drainage or infection. Pulses distally are strong with capillary refill brisk. NEUROLOGIC: She is alert and oriented times three. LABORATORY: CBC today shows a stable H&H at 10.4 and 31.3 with a normal differential. Chemistries show normal electrolytes with potassium 4.4, BUN is down to 37, creatinine is now down to 1.82 with calcium 6.6 but corrected for albumin of 2.4 corrected to 7.9. MICROBIOLOGY: Again, final culture results showed Klebsiella pneumoniae. Please see that for full sensitivity report. She remains on parenteral antibiotics that include vancomycin, Levaquin and Ancef with anticipation of discontinuing vancomycin and Levaquin based off current sensitivity reports and the patient is showing clinical improvement. ASSESSMENT: 1. Postoperative day number 4 left hemiarthroplasty for an acute subcapital fracture of the left femoral neck status post same level fall. 2. Significant hypotension previously secondary to anemia with possible reaction to Meropenem versus reaction to gram negative toxins from antibiotic therapy with the patient having a urinary tract infection with a Klebsiella pneumoniae species. The patient has been clinically stable with IV fluids and blood products, and has remained on antibiotics to include cefazolin, vancomycin and Levaquin. 3. History of chronic tremors. 4. History of mild aortic stenosis recently diagnosed. 5. Acute same level fall resulting in tripping on shoes in the floor resulting in the left femoral subcapital neck fracture. 6. Urinary tract infection with final culture results showing Klebsiella pneumoniae with the patient on parenteral antibiotics and the patient being transitioned now to cefazolin with discontinuing Levaquin and vancomycin as she is showing clinical improvement. 7. Acute renal injury showing clinical improvement with sodium bicarb and IV fluids. PLAN: At this point, the patient is continuing to show good clinical improvement, will plan to discontinue her Howard and repeat a urinalysis which is pending. Will plan to discontinue Levaquin and vancomycin but continue with Ceftin parenterally for an additional 1 to 2 days for full treatment course of the underlying urinary tract infection. The patient will continue with her physical therapy efforts with anticipation of going to Swing Bed once she is clinically stable. Her renal function has shown improvement and as such I have discontinued her sodium bicarb drip as she is taking adequate p.o. fluids. Will anticipate discharge to Swing Bed in the near future. Until then, continue to monitor and treat appropriately. #[id number] [facility]
[2016-11-03] MEDS: DOCUSATE CALCIUM 240 MG CAP PO SCH (20:10)
[2016-11-04] MEDS: ceFAZolin SODIUM 1 GM in SODIUM CHL 0.9% 50ML MIN-BAG+ 50 ML IVPB SCH ×2 (04:00→15:28)
[2016-11-04] MEDS: OMEPRAZOLE CAP 20 MG CAP PO SCH (06:23)
[2016-11-04] MEDS ORDERED: SODIUM CHL 0.9% 50ML MIN-BAG+ 50 ML IVPB ONE ×2 (07:44→20:50)
[2016-11-04] MEDS ORDERED: ceFAZolin SODIUM 1 GM VIAL ONE ×2 (07:46→20:52)
--- NOTE | 2016-11-04 08:33 | PN ---
DATE: 11/04/16 SUBJECTIVE: She is doing well and her pain is well controlled. OBJECTIVE: Afebrile. Vital signs stable. Wound is clean. There are no signs or symptoms of infection. ASSESSMENT: Status post hemiarthroplasty. PLAN: She has seemed to level out with regards to her blood pressure. Her mental status has returned to normal baseline. As such, we will continue with physical therapy with weight-bearing as tolerated. #[id number] [facility]
[2016-11-04] MEDS: BIFIDOBACTERIUM INFANTIS 4 MG CAP PO SCH ×2 (09:40→21:08)
[2016-11-04] MEDS: GABAPENTIN 300 MG CAP PO SCH ×3 (09:40→21:08)
[2016-11-04] MEDS: SODIUM CHLORIDE 0.9% (FLUSH) 10 ML SYG IV SCH ×2 (09:40→21:08)
[2016-11-04] MEDS: ALPRAZolam 0.5 MG TAB PO SCH ×3 (09:40→21:08)
[2016-11-04] MEDS: MAGNESIUM OXIDE 400 MG TAB PO SCH (09:40)
[2016-11-04] MEDS: ENOXAPARIN SODIUM 30 MG/0.3 ML SYG SUBCU SCH ×2 (09:41→21:09)
[2016-11-04] MEDS: IV SET AND CAP CHANGE INJ INJ SCH (15:23)
--- NOTE | 2016-11-04 21:01 | PN ---
DATE: 11/04/16 SUPERVISING PHYSICIAN: Derick Perry M.D. SUBJECTIVE: The patient is improving daily. Her pain is being well controlled. She is back to her baseline status mentally and has very well controlled blood pressure at this point. She has had no nausea, vomiting or diarrhea. Remains afebrile. OBJECTIVE: VITAL SIGNS: T max 98.8, pulse 93, blood pressure 116/80, respirations 16, satting 95% on room air. I's and O's show a positive balance of 85 with 1410 in, 1325 out. She has had bowel movements daily. Weight is 88.17 kg. CHEST: Clear to auscultation, just diminished towards the bases. HEART: Regular rate and rhythm with some mild tachycardia 100 to 110 as noted on bedside telemetry. ABDOMEN: Obese but soft, non-tender. Positive bowel sounds. EXTREMITIES: No clubbing, cyanosis or edema. Left hip shows continued old ecchymotic areas with a dressing in place that is clean and dry with no signs of infection. Distally pulses are strong. NEUROLOGIC: She is alert and oriented times three. LABORATORY: Now shows a stable H&H at 10.2 and 30.5 with normal white count and normal differential. Chemistries show normal electrolytes with improving BUN as well as creatinine is down to 1.7. Calcium remains low at 6.6 but albumin is 2.4, corrected calcium is 7.9. ASSESSMENT: 1. Postoperative day 5 left hemiarthroplasty for acute subcapital fracture of the left femoral neck status post same level fall. 2. Previous hypertension felt to be secondary to Meropenem reaction versus a gram negative toxin from antibiotic therapy from the gram-negative rods identified as Klebsiella pneumoniae from urinary tract infection with the patient now being clinically stable after IV fluids, blood products and IV antibiotics, Cefazolin, vancomycin and Levaquin with the patient now being transitioned just to Cefazolin and remaining stable. 3. History of chronic tremors. 4. History of mild aortic stenosis recently diagnosed. 5. Acute same level fall tripping on her shoes in the floor resulting in left femoral subcapital fracture. 6. Urinary tract infection with final results of culture showing Klebsiella pneumoniae with the patient now being on Cefazolin after discontinuing Levaquin and vancomycin and remaining clinically stable. 7. Acute renal injury with renal insufficiency showing improvement felt to be secondary to prerenal azotemia from hypotensive event and ongoing antibiotic therapy with the patient now showing improvement in both BUN and creatinine after several days of sodium bicarbonate drip and outpatient on continued p.o. fluids having been saline locked with improving renal function. PLAN: The patient is clinically showing improvement. I would anticipate after tomorrow the patient could hopefully be transitioned to Swing Bed depending on Physical Therapy's recommendations. Medically her renal function is improving. Will repeat a renal function in the morning. Her H&H is now stabilized and she continues on Cefazolin. Will continue for a duration of treatment for a total of 10 days for the underlying urinary tract infection. Her Howard was removed and she had initially some small retention, but has now shown good output with no complications. Again, will anticipate hopefully discharging to Swing Bed by Wednesday or Wednesday as the patient continues to improve clinically. Until then, will continue to monitor and treat appropriately. [facility][id number] [facility]
[2016-11-04] MEDS: DOCUSATE CALCIUM 240 MG CAP PO SCH (21:08)
[2016-11-05] MEDS: ceFAZolin SODIUM 1 GM in SODIUM CHL 0.9% 50ML MIN-BAG+ 50 ML IVPB SCH ×2 (03:29→15:15)
[2016-11-05] MEDS: OMEPRAZOLE CAP 20 MG CAP PO SCH (06:25)
--- NOTE | 2016-11-05 08:07 | PN ---
DATE: 11/05/16 SUBJECTIVE: Ms. Lira is doing pretty well although she is a little bit tired this morning. OBJECTIVE: Afebrile. Vital signs stable. Wound is clean. There are no signs or symptoms of infection. ASSESSMENT: Status post hemiarthroplasty. PLAN: The plan at this point is for her to continue with therapy. She will hopefully continue to improve and we will make assessments and change her status as needed with regards to her inpatient categorization. [facility][id number] [facility]
[2016-11-05] MEDS: MAGNESIUM OXIDE 400 MG TAB PO SCH (08:53)
[2016-11-05] MEDS: ALPRAZolam 0.5 MG TAB PO SCH ×3 (08:53→20:48)
[2016-11-05] MEDS: GABAPENTIN 300 MG CAP PO SCH ×3 (08:53→20:47)
[2016-11-05] MEDS: BIFIDOBACTERIUM INFANTIS 4 MG CAP PO SCH ×2 (08:53→20:46)
[2016-11-05] MEDS: SODIUM CHLORIDE 0.9% (FLUSH) 10 ML SYG IV SCH ×2 (08:53→20:47)
[2016-11-05] MEDS: ENOXAPARIN SODIUM 30 MG/0.3 ML SYG SUBCU SCH ×2 (09:03→20:49)
[2016-11-05] MEDS: LEVALBUTEROL NEBS 1.25 MG/3 ML VIAL NEB SCH ×3 (13:04→19:45)
[2016-11-05] MEDS ORDERED: SODIUM CHL 0.9% 50ML MIN-BAG+ 50 ML IVPB ONE ×2 (14:25→20:02)
[2016-11-05] MEDS ORDERED: ceFAZolin SODIUM 1 GM VIAL ONE ×2 (14:26→20:03)
--- NOTE | 2016-11-05 17:21 | PN ---
DATE: 11/05/16 SUPERVISING PHYSICIAN: Red Eisenberg MD. SUBJECTIVE: The patient continues to improve with her physical therapy but will require additional days of physical therapy and a need for that to go to Swing Bed. Her laboratory studies are showing they are stabilized, hopefully tomorrow after additional clinical follow with laboratory studies, she will be ready to be discharged to Swing Bed. She remains afebrile. She is showing some low saturations at rest on oxygen so I will start her on some breathing treatments again encourage her to continue with deep breathing exercises. She is on day #5 currently of antibiotic therapy and should be able to finish up tomorrow or the next prior to going to Swing Bed. OBJECTIVE: VITAL SIGNS: She is afebrile, temperature 98.3, pulse 91, blood pressure 109/69 , respirations 18, satting 95% on nasal cannula at rest. room air. I's and O' s show a negative balance of 700 with 700 in, 570 out. Weight is 88.4 kg. CHEST: Clear to auscultation with no rhonchi, rales, or wheezes noted but diminished towards the bases, especially posteriorly. HEART: Regular rate and rhythm. ABDOMEN: Soft, non-tender. Positive bowel sounds. EXTREMITIES: Trace of 1+ edema noted to the left foot compared to the right. The left hip has a dressing in place with old ecchymotic areas but no obvious infection. NEUROLOGIC: She is alert and oriented times three. LABORATORY: Hemoglobin and hematocrit have been stable. Will plan to repeat a hemoglobin and hematocrit tomorrow. Chemistries show normal electrolytes today with improvement of renal function with BUN down to 30, creatinine down to 1.4. Calcium is starting to show is probably related to, is up to 6.8 with albumin correction of 2.5, calcium 8.0. MICROBIOLOGY: No new results are available. Again, she had a Klebsiella pneumonia in her urine. Please see those reports for full details. RADIOLOGY: No additional radiographic studies. ASSESSMENT: 1. Postoperative day #6 left hemiarthroplasty for acute subcapital fracture of the left femoral neck status post same level fall. 2. Previous hypertension secondary to Meropenem reaction with a possible reaction to gram negative toxin from antibiotic therapy with patient having a gram- negative eleuterio identified as Klebsiella pneumoniae and a urinary tract infection with the patient being stable now after IV fluids, blood products and IV antibiotics with the patient remaining on Ancef. 3. History of chronic tremors. 4. History of mild aortic stenosis, recently diagnosed. 5. Urinary tract infection with final culture results showing a Klebsiella pneumoniae with the patient having been on multiple antibiotics to include vancomycin , Levaquin and Cefazolin with patient continuing on Cefazolin on day #5 of treatment. We will continue antibiotic therapy as appropriate anywhere from an additional 7 to 10 days. 6. Acute renal injury with acute renal insufficiency showing improvement, felt to be secondary to prerenal azotemia from hypotensive event and ongoing antibiotic therapy with the patient showing improvement in both BUN and creatinine and she was also on sodium bicarbonate drip. We will continue to monitor as she is taking adequate p.o. fluids and showing improvement and until the renal function is stabilized, therefore she should be able to be discharged to Swing Bed after repeat of laboratory studies. PLAN: The patient continues to show improvement. Today, she was showing some desaturations at rest. I have started her on some Xopenex treatments and encouraged her to deep breathe and ordered bronchial hygiene to prevent any further complications. Again, her renal function is showing improvement. We plan to repeat hemoglobin and hematocrit and BMP in the morning with anticipation of hopefully being able to be discharged to Swing Bed tomorrow. Will anticipate continuation of antibiotics, possibly at discharge but patient has had at least 5 days of Ancef and has shown improvement. Until the, we will continue to monitor the patient closely and treat appropriately. #[id number] [facility]
[2016-11-05] MEDS: DOCUSATE CALCIUM 240 MG CAP PO SCH (20:46)
[2016-11-06] MEDS: ceFAZolin SODIUM 1 GM in SODIUM CHL 0.9% 50ML MIN-BAG+ 50 ML IVPB SCH (04:05)
[2016-11-06] MEDS: OMEPRAZOLE CAP 20 MG CAP PO SCH (06:42)
[2016-11-06] MEDS: LEVALBUTEROL NEBS 1.25 MG/3 ML VIAL NEB SCH ×2 (08:15→13:07)
[2016-11-06] MEDS: ALPRAZolam 0.5 MG TAB PO SCH (09:51)
[2016-11-06] MEDS: GABAPENTIN 300 MG CAP PO SCH (09:51)
[2016-11-06] MEDS: BIFIDOBACTERIUM INFANTIS 4 MG CAP PO SCH (09:51)
[2016-11-06] MEDS: MAGNESIUM OXIDE 400 MG TAB PO SCH (09:51)
[2016-11-06] MEDS: ENOXAPARIN SODIUM 30 MG/0.3 ML SYG SUBCU SCH (09:52)
[2016-11-06] MEDS: SODIUM CHLORIDE 0.9% (FLUSH) 10 ML SYG IV SCH (09:52)
[2016-11-06 11:50] VITALS: BP 108/68; TEMP 98.1; O2SAT 91
[2016-11-06] MEDS ORDERED: LEVALBUTEROL NEBS 1.25 MG/3 ML VIAL NEB ONE (12:35)
--- NOTE | 2016-11-06 13:43 | DS ---
SUPERVISING PHYSICIAN: Red Eisenberg MD DISCHARGE DIAGNOSIS: 1. Postoperative day #8 left hemiarthroplasty for acute subcapital fracture of the left femoral neck status post same level fall. 2. Previous hypertension secondary to meropenem reaction with a possible reaction to gram negative toxin from antibiotic therapy with patient having a gram- negative eleuterio identified as Klebsiella pneumoniae and a urinary tract infection with the patient being stable now after IV fluids, blood products and IV antibiotics with the patient remaining on Ancef. 3. History of chronic tremors. 4. History of mild aortic stenosis. 5. Urinary tract infection with Klebsiella pneumoniae. 6. Acute renal injury with acute renal insufficiency, showing improvement, felt to be secondary to prerenal azotemia from hypotension and ongoing antibiotic therapy, now showing improvement. HISTORY OF PRESENT ILLNESS: This is an 81-year-old female patient who presented to the Emergency Department on date of admission after falling in her bedroom and having significant left hip pain. About 7 AM on the morning of admission, she got up from the bed and went to the bathroom and she fell on her 's golf shoes, fell against the bed and then fell onto the floor. She had significant pain in the left hip. She was brought to the Emergency Room by EMS. In the Emergency Room, her CBC was within normal limits and her chemistries also were basically within normal limits. Her hip x-ray per radiologic interpretation showed a subcapital left femoral neck fracture noted with approximately 2 cm proximal displacement of the distal fracture fragment. Dr. Bay was called and agreed to perform surgery on the day after admission. She was admitted to the hospital. HOSPITAL COURSE: She went to surgery and Dr. Bay, orthopedic surgeon, performed a hemiarthroplasty of the left hip. She had no complications intraoperatively and postoperatively she developed a urinary tract infection. She did have a reaction to what was thought to be the Merrem and her blood pressure became very low with systolic pressures in the 80s. She was given IV fluids. Her urinalysis grew out Klebsiella pneumoniae. Her antibiotics were changed to Ancef and Levaquin. Although her rehab and physical therapy were slow, she has reached a point at this time that she will be discharged from the hospital and re-admitted for Swing Bed admission. Her vital signs have stabilized. She did received 2 units of packed red blood cells that were thought to be due to postoperative blood loss and she received that on . Since then, her laboratories have been stable. DISCHARGE PLAN: The patient will be discharged from the hospital and readmitted for Swing Bed. She is to continue her strengthening and conditioning with physical therapy. We will continue her home medications as well as 5 additional days of Ancef. She will also need 10 mg of Xarelto for 28 additional days. We will resume her previous diet. She will followup with Dr. Bay per his instructions as well as Dr. Caballero after discharge from Swing Bed. DISCHARGE MEDICATIONS: 1. Xanax. 2. Gabapentin. 3. Surfak. 4. Omeprazole. 5. Ancef. 6. Xarelto. Dr. Eisenberg is the collaborating physician and available for consultation. [facility][id number] [facility]
== END 2016-11-06 12:00 | disposition swing bed (61) | DRG 470 ==
LOC: ER 08:08 → MS 10:54
PROVIDERS: ADMIT Nurse Practitioner Acute Care; ATTEND Nurse Practitioner Acute Care
PROC: 0SRS0J9 Replacement of Left Hip Joint, Femoral Surface with Synthetic Substitute, Cemented, Open Approach (ICD-10-PCS; principal; 2016-10-30 07:00)
PROC: 30233N1 Transfusion of Nonautologous Red Blood Cells into Peripheral Vein, Percutaneous Approach (ICD-10-PCS; 2016-11-01)
DX: S72.012A Unspecified intracapsular fracture of left femur, initial encounter for closed fracture (principal); N39.0 Urinary tract infection, site not specified; N17.9 Acute kidney failure, unspecified; D62 Acute posthemorrhagic anemia; W01.190A Fall on same level from slipping, tripping and stumbling with subsequent striking against furniture, initial encounter; Y93.89 Activity, other specified; Y92.003 Bedroom of unspecified non-institutional (private) residence as the place of occurrence of the external cause; Y99.8 Other external cause status; I35.0 Nonrheumatic aortic (valve) stenosis; G25.0 Essential tremor; Z79.899 Other long term (current) drug therapy; B96.1 Klebsiella pneumoniae [K. pneumoniae] as the cause of diseases classified elsewhere; I95.9 Hypotension, unspecified; E66.9 Obesity, unspecified; T36.1X5A Adverse effect of cephalosporins and other beta-lactam antibiotics, initial encounter; Y92.230 Patient room in hospital as the place of occurrence of the external cause; R33.9 Retention of urine, unspecified; R09.02 Hypoxemia; Z16.30 Resistance to unspecified antimicrobial drugs; Z68.29 Body mass index [BMI] 29.0-29.9, adult

== ENCOUNTER 2016-11-06 12:27 | Inpatient (IN) | payer MEDICARE, OTHER ==
--- NOTE | 2016-11-06 12:43 | HP ---
SUPERVISING PHYSICIAN: Red Eisenberg MD HISTORY OF PRESENT ILLNESS: This is an 81-year-old female patient who presented to the hospital on the date of her prior admission after falling in her bedroom over her 's golf shoes. She was brought to the Emergency Room and her hip x-ray per radiologic interpretation showed a subcapital left femoral neck fracture with approximately 2 cm proximal displacement of the distal fracture fragment. Dr. Bay was consulted for surgical intervention. She had a left hemiarthroplasty for that subacute fracture. She came through her intraoperative period without problems. She developed a urinary tract infection while in the hospital. Her urinalysis grew out Klebsiella pneumoniae. She also received 2 units of packed red blood cells due to postoperative blood loss. Since then, her laboratories have been stable. She has completed her Acute Care stay with her physical therapy rehabilitation and conditioning and now will be readmitted to the hospital for Swing Bed to continue her strengthening and conditioning as well as continued antibiotic therapy. with physical therapy. We will continue her home medications as well as 5 additional days of Ancef. She will also need 10 mg of Xarelto for 28 additional days. We will resume her previous diet. She will followup with Dr. Bay per his instructions as well as Dr. Caballero after discharge from Swing Bed. PAST MEDICAL HISTORY: 1. Aortic stenosis of mild severity diagnosed in July 2016. 2. Essential tremor. 3. History of detached retina. 4. Broken right wrist. 5. Fractured left forearm. PAST SURGICAL HISTORY: 1. Detached retina surgery in the . 2. Elbow fracture repair in 2012. OUTPATIENT MEDICATIONS: Per the EMR. ALLERGIES: NO KNOWN DRUG ALLERGIES. SOCIAL HISTORY: She is retired. She is . She has 4 children. She denies any tobacco, ETOH or illicit drug use. REVIEW OF SYSTEMS: Negative with the exception as per the History of Present Illness. PHYSICAL EXAMINATION: VITAL SIGNS: Afebrile. Heart rate 93. Blood pressure 108/68. Respiratory rate 22. O2 saturation 91% on room air. GENERAL: This is an 81-year-old female patient who is lying in her hospital bed. She is in no acute distress. HEENT: Normocephalic and atraumatic. Pupils are equal and reactive. CHEST: Clear to auscultation bilaterally. CARDIOVASCULAR: Regular rate and rhythm. ABDOMEN: Soft, nondistended, nontender. EXTREMITIES: No cyanosis, clubbing or edema. Bilateral pedal pulses are palpable. The left hip has a dressing in place that is dry and intact. NEUROLOGIC: She is awake, alert and oriented times three. IMPRESSION: 1. Postoperative day #8 left hemiarthroplasty for acute subcapital fracture of the left femoral neck status post same level fall as per Dr. Reji Bay, orthopedic surgeon. 2. Urinary tract infection with Klebsiella pneumoniae. 3. History of chronic tremors. 4. History of mild aortic stenosis. 5. Acute renal injury with acute renal insufficiency, now improved. PLAN: We will admit the patient to Swing Bed. She will continue her rehab and conditioning per physical therapy. Her IV was discontinued, so we will start Keflex p.o. for her urinary tract infection. She will need about 5 more days of antibiotic therapy. I will also start her Xarelto. She will need 28 days more of 10 mg Xarelto for her DVT prophylaxis for her hip surgery. We will continue to monitor the patient closely and followup as needed. Dr. Eisenberg is the collaborating physician and available for consultation. #[id number] [facility]
[2016-11-06] MEDS: LEVALBUTEROL NEBS 1.25 MG/3 ML VIAL INH SCH ×2 (13:10→19:25)
[2016-11-06] MEDS ORDERED: ACETAMINOPHEN 500 MG TAB PO PRN (13:34)
[2016-11-06] MEDS ORDERED: MAGNESIUM HYDROXIDE 30 ML UD PO PRN (13:34)
[2016-11-06] MEDS ORDERED: LEVALBUTEROL NEBS 1.25 MG/3 ML VIAL INH PRN (13:34)
[2016-11-06] MEDS ORDERED: SODIUM PHOS/BIPHOS ENEMA ADULT 133 ML BTTL PR PRN (13:34)
[2016-11-06] MEDS ORDERED: HYDROcodone 5MG/APAP 325MG 1 EA TAB PO PRN (13:34)
[2016-11-06] MEDS: CEPHALEXIN MONOHYDRATE 500 MG CAP PO SCH ×2 (15:55→20:37)
[2016-11-06] MEDS: RIVAROXABAN 10 MG TAB PO SCH (15:55)
[2016-11-06] MEDS ORDERED: OMEPRAZOLE CAP 20 MG CAP ONE (21:06)
[2016-11-06] MEDS ORDERED: GABAPENTIN 300 MG CAP ONE (21:06)
[2016-11-06] MEDS ORDERED: DOCUSATE CALCIUM 240 MG CAP ONE (21:06)
[2016-11-06] MEDS ORDERED: ALPRAZolam 0.5 MG TAB ONE (21:07)
[2016-11-06] MEDS: GABAPENTIN 300 MG CAP PO SCH (21:16)
[2016-11-06] MEDS: ALPRAZolam 0.5 MG TAB PO SCH (21:17)
[2016-11-07] MEDS: CEPHALEXIN MONOHYDRATE 500 MG CAP PO SCH ×4 (02:54→20:04)
[2016-11-07] MEDS: OMEPRAZOLE CAP 20 MG CAP PO SCH (05:38)
[2016-11-07] MEDS ORDERED: DOCUSATE SODIUM 100 MG CAP ONE (07:14)
[2016-11-07] MEDS: LEVALBUTEROL NEBS 1.25 MG/3 ML VIAL INH SCH ×3 (08:09→20:12)
[2016-11-07] MEDS: ALPRAZolam 0.5 MG TAB PO SCH ×3 (08:53→20:55)
[2016-11-07] MEDS: GABAPENTIN 300 MG CAP PO SCH ×3 (08:53→20:55)
[2016-11-07] MEDS: DOCUSATE SODIUM 100 MG CAP PO SCH (08:54)
[2016-11-07] MEDS: RIVAROXABAN 10 MG TAB PO SCH (08:58)
--- NOTE | 2016-11-07 13:14 | PN ---
DATE: 11/06/16 SUBJECTIVE: Ms. Lira seems to be doing well and she has been completing physical therapy. She has had no problems with her blood pressure. OBJECTIVE: She is afebrile. Vital signs are stable. Wound is clean. There are no signs or symptoms of infection. ASSESSMENT: 1. Status post hemiarthroplasty. PLAN: The plan at this point is for her to continue on with physical therapy. [facility][id number] [facility]
--- NOTE | 2016-11-07 13:16 | PN ---
DATE: 11/07/16 SUBJECTIVE: Ms. Lira is doing very well today and she has walked quite a distance. She is having minimal pain. OBJECTIVE: She is afebrile. Vital signs are stable. Wound is clean. There are no signs or symptoms of infection. ASSESSMENT: 1. Status post hemiarthroplasty. PLAN: The plan at this point is for her to continue on with physical therapy. [facility][id number] [facility]
[2016-11-08] MEDS: CEPHALEXIN MONOHYDRATE 500 MG CAP PO SCH ×4 (02:17→20:12)
[2016-11-08] MEDS: OMEPRAZOLE CAP 20 MG CAP PO SCH (06:15)
[2016-11-08] MEDS: DOCUSATE SODIUM 100 MG CAP PO SCH (08:34)
[2016-11-08] MEDS: GABAPENTIN 300 MG CAP PO SCH ×3 (08:34→21:12)
[2016-11-08] MEDS: ALPRAZolam 0.5 MG TAB PO SCH ×3 (08:34→21:12)
[2016-11-08] MEDS: RIVAROXABAN 10 MG TAB PO SCH (08:34)
[2016-11-08] MEDS: LEVALBUTEROL NEBS 1.25 MG/3 ML VIAL INH SCH ×3 (08:40→19:36)
[2016-11-09] MEDS: CEPHALEXIN MONOHYDRATE 500 MG CAP PO SCH ×4 (02:11→20:08)
[2016-11-09] MEDS: OMEPRAZOLE CAP 20 MG CAP PO SCH (05:52)
[2016-11-09] MEDS: ALPRAZolam 0.5 MG TAB PO SCH ×3 (08:36→20:08)
[2016-11-09] MEDS: GABAPENTIN 300 MG CAP PO SCH ×3 (08:37→20:08)
[2016-11-09] MEDS: DOCUSATE SODIUM 100 MG CAP PO SCH (08:37)
[2016-11-09] MEDS: RIVAROXABAN 10 MG TAB PO SCH (08:37)
[2016-11-09] MEDS: LEVALBUTEROL NEBS 1.25 MG/3 ML VIAL INH SCH ×3 (09:48→20:23)
--- NOTE | 2016-11-09 13:48 | PN ---
DATE: 11/09/16 SUBJECTIVE: The patient is sitting up, talking with family and friends. She is fully awake and alert. Appetite is good. In fact, she complains that they are giving her too much food. She still has some discomfort, especially on the left hip region after surgery with evidence of continued healing in the incision. She is followed closely by Dr. Bay and the physical therapy department. No burning upon urination. No nausea, vomiting or diarrhea. No headaches. No fever or chills. OBJECTIVE: VITAL SIGNS: Afebrile. Pulse 92. Blood pressure 121/89. Pulse oximetry 94% on room air. Weight 85.6 kg. LABORATORY: No laboratory in the last 3 days and will be repeated tomorrow for continued followup. ASSESSMENT: 1. Postoperative day #11, left hemiarthroplasty for an acute subcapital fracture of the left femoral neck status post same level fall, tripping on shoes, performed by Dr. Reji Bay, orthopedic surgery, currently on rehab on Swing Bed status. 2. Recent acute urinary tract infection with Klebsiella pneumoniae, being treated currently with Keflex. 3. History of chronic tremors. 4. History of mild aortic stenosis. 5. History of acute renal injury with acute renal insufficiency, showing improvement as treatment course has continued. PLAN: We will recheck urinalysis as well as kidney function and blood count tomorrow in anticipation of returning home after rehabilitation has allowed her to reach a point of rehab and stability where she can safely return home. We will continue with Swing Bed rehabilitation under physical therapy and orthopedic surgery supervision. Reevaluate the patient in the morning. #[id number] [facility]
[2016-11-10] MEDS: CEPHALEXIN MONOHYDRATE 500 MG CAP PO SCH ×4 (02:05→20:18)
[2016-11-10] MEDS: OMEPRAZOLE CAP 20 MG CAP PO SCH (05:32)
[2016-11-10] MEDS ORDERED: LOSARTAN POTASSIUM 25 MG TAB ONE (07:08)
[2016-11-10] MEDS ORDERED: HYDROCORTISONE 25 MG SUPPOSITORY ONE (07:09)
[2016-11-10] MEDS ORDERED: ISOSORBIDE DINITRATE 5 MG TAB ONE (07:09)
[2016-11-10] MEDS ORDERED: ASPIRIN (CHEWABLE) 81 MG TAB ONE (07:09)
[2016-11-10] MEDS ORDERED: METOPROLOL SUCCINATE XL 50 MG TAB ONE (07:09)
[2016-11-10] MEDS ORDERED: amLODIPine BESYLATE 5 MG TAB ONE (07:09)
[2016-11-10] MEDS ORDERED: HYDROcodone 5MG/APAP 325MG 1 EA TAB PO PRN (08:47)
[2016-11-10] MEDS: ALPRAZolam 0.5 MG TAB PO SCH ×3 (08:47→20:18)
[2016-11-10] MEDS: GABAPENTIN 300 MG CAP PO SCH ×3 (08:47→20:18)
[2016-11-10] MEDS: DOCUSATE SODIUM 100 MG CAP PO SCH (08:47)
[2016-11-10] MEDS: RIVAROXABAN 10 MG TAB PO SCH (08:48)
[2016-11-10] MEDS: SOD POLYSTYRENE SULFONATE 15 GM/60 ML BTTL PO SCH (09:02)
[2016-11-10] MEDS ORDERED: SOD POLYSTYRENE SULFONATE 15 GM/60 ML BTTL ONE (09:02)
[2016-11-10] MEDS: LEVALBUTEROL NEBS 1.25 MG/3 ML VIAL INH SCH ×3 (09:40→20:22)
--- NOTE | 2016-11-10 10:09 | PN ---
DATE: 11/10/16 SUBJECTIVE: The patient is sitting up and generally looks more alert and active than before. She will discuss with her therapist when they feel that she will be safe and strong enough to return home for continued rehabilitation. Appetite is fairly good. Her is present during the interview this morning. OBJECTIVE: VITAL SIGNS: Afebrile. Pulse 101. Blood pressure 126/79. Pulse oximetry 92% on room air. LUNGS: Clear. HEART: Tones are regular. ABDOMEN: Soft. LABORATORY: Hemoglobin 10.9, white count 7,200. Chemistries show elevated potassium 5.3, possibly as a result of her recent renal insufficiency. BUN is down to 21, creatinine 1.1, glucose 110, calcium 7.8 with albumin low at 2.7. Urinalysis generally clean with 0 bacteria. ASSESSMENT: 1. Postoperative day #12, left hemiarthroplasty for an acute subcapital fracture of the left femoral neck status post same level fall, tripping on shoes, performed by Dr. Reji Bay, orthopedic surgeon, currently on rehab on Swing Bed status. 2. Recent acute urinary tract infection with Klebsiella pneumoniae, being treated currently with Keflex. 3. Significant hyperkalemia, receiving two doses of Kayexalate today and tomorrow. 4. History of chronic tremors. 5. History of mild aortic stenosis. 6. History of acute renal injury with acute renal insufficiency, showing improvement as treatment course has continued with hypotension probable initial etiology, possibly as a complication of meropenem being used to treat Klebsiella pneumoniae urinary tract infection initially, now improved. PLAN: The patient will continue with the Kayexalate for two doses only. Close observation. Discuss with therapist when the feel she has reached her full rehab potential and then consider home with close followup with Dr. Caballero in the clinic. [facility][id number] [facility]
[2016-11-10] MEDS ORDERED: FUROSEMIDE 40 MG TAB ONE (16:41)
[2016-11-10] MEDS ORDERED: FUROSEMIDE 40 MG TAB PO ONE (16:52)
[2016-11-11] MEDS: CEPHALEXIN MONOHYDRATE 500 MG CAP PO SCH ×4 (02:02→20:30)
[2016-11-11] MEDS: OMEPRAZOLE CAP 20 MG CAP PO SCH (06:40)
[2016-11-11] MEDS: ALPRAZolam 0.5 MG TAB PO SCH ×3 (08:01→20:30)
[2016-11-11] MEDS: GABAPENTIN 300 MG CAP PO SCH ×3 (08:01→20:30)
[2016-11-11] MEDS: RIVAROXABAN 10 MG TAB PO SCH (08:01)
[2016-11-11] MEDS: DOCUSATE SODIUM 100 MG CAP PO SCH (08:02)
[2016-11-11] MEDS: SOD POLYSTYRENE SULFONATE 15 GM/60 ML BTTL PO SCH (08:02)
[2016-11-11] MEDS: LEVALBUTEROL NEBS 1.25 MG/3 ML VIAL INH SCH ×3 (08:30→19:35)
[2016-11-11] MEDS ORDERED: FUROSEMIDE 40 MG TAB PO ONE ×2 (16:34→16:38)
--- NOTE | 2016-11-11 18:39 | PN ---
DATE: 11/11/16 SUPERVISING PHYSICIAN: Srinivas Patel M.D. SUBJECTIVE: The patient is sitting in the chair eating lunch. She has been doing well with her physical therapy. She continues to show good improvement. We discussed anticipation of discharge this coming Wednesday. OBJECTIVE: VITAL SIGNS: She remains afebrile. Temperature 98.5, pulse 98, blood pressure 135/77, respirations 19, satting 94% on room air. CHEST: Clear to auscultation. HEART: Regular rate and rhythm. ABDOMEN: Obese but soft, non- tender. Positive bowel sounds. EXTREMITIES: No clubbing, cyanosis or edema. Incision site on the left hip remains clean and dry with no obvious signs of infection. NEUROLOGIC: She is alert and oriented times three. LABORATORY: No additional laboratory was repeated today. She did get some Kayexalate for high potassium yesterday. Will plan to repeat labs tomorrow to recheck the potassium level. ASSESSMENT: 1. Postoperative day 13 left hemiarthroplasty for acute subcapital fracture of the left femoral neck status post same level fall, tripped on her own shoes, performed by Dr. Reji Bay, orthopedic surgeon, currently on rehab Swing Bed status with anticipation of discharging this coming Wednesday. 2. Recent acute urinary tract infection with Klebsiella pneumoniae being treated with Keflex. 3. Significant hyperkalemia being treated with Kayexalate with anticipation of repeating potassium level in the morning. 4. History of chronic tremors. 5. History of mild aortic stenosis. 6. History of acute renal injury with acute renal insufficiency showing improvement as treatment course has continued with hypotension probable initial etiology, possibly as a complication secondary to meropenem having being treated for Klebsiella pneumoniae urinary tract infection showing improvement prior to discharge and admission to Swing Bed. PLAN: Will continue to follow the patient as she progresses along through her rehabilitation on Swing Bed. Will plan to repeat her potassium in the morning as she did receive several doses of Kayexalate. Anticipated discharge on Wednesday. Will make arrangements for a walker as well as continued outpatient therapy. At this point, the patient is discussing home health for continued rehabilitation. Hallie, our [employer], is continuing to work on discharge planning. Until discharge, will continue to monitor the patient closely and treat appropriately. Once discharged, she will need close followup with Dr. Caballero in the clinic. [facility][id number] [facility]
--- NOTE | 2016-11-11 23:38 | PCM.CORE ---
Physician DVT/VTE - Prophylaxis Currently: Patient already on anticoagulation therapy - Nurse DVT Assessment & Total Each Risk Factor Represents 5 Points: Major Trauma < 1 month Each Risk Factor Represents 3 Points: Age over 75 years Each Risk Factor Represents 1 Point: Hx Major Surgery <1month Each Risk Factor is 1 Point: Obesity (BMI >25) DVT Assessment Score: 10 - 5 or more Very High Risk Treatments: Early Ambulation *, Sequential Compression Device
[2016-11-12] MEDS: CEPHALEXIN MONOHYDRATE 500 MG CAP PO SCH ×3 (02:06→15:14)
[2016-11-12] MEDS: OMEPRAZOLE CAP 20 MG CAP PO SCH (06:31)
[2016-11-12] MEDS: ALPRAZolam 0.5 MG TAB PO SCH ×3 (08:38→20:33)
[2016-11-12] MEDS: DOCUSATE SODIUM 100 MG CAP PO SCH (08:38)
[2016-11-12] MEDS: GABAPENTIN 300 MG CAP PO SCH ×3 (08:38→20:33)
[2016-11-12] MEDS: RIVAROXABAN 10 MG TAB PO SCH (08:38)
[2016-11-12] MEDS: LEVALBUTEROL NEBS 1.25 MG/3 ML VIAL INH SCH ×3 (08:57→19:35)
[2016-11-12] MEDS ORDERED: CEPHALEXIN MONOHYDRATE 500 MG CAP ONE (15:11)
[2016-11-12] MEDS: BIFIDOBACTERIUM INFANTIS 4 MG CAP PO SCH (15:14)
[2016-11-13] MEDS: OMEPRAZOLE CAP 20 MG CAP PO SCH (06:15)
[2016-11-13] MEDS: BIFIDOBACTERIUM INFANTIS 4 MG CAP PO SCH (09:15)
[2016-11-13] MEDS: DOCUSATE SODIUM 100 MG CAP PO SCH (09:15)
[2016-11-13] MEDS: GABAPENTIN 300 MG CAP PO SCH (09:15)
[2016-11-13] MEDS: ALPRAZolam 0.5 MG TAB PO SCH (09:15)
[2016-11-13] MEDS: RIVAROXABAN 10 MG TAB PO SCH (09:15)
[2016-11-13] MEDS: LEVALBUTEROL NEBS 1.25 MG/3 ML VIAL INH SCH (09:17)
[2016-11-13 10:12] VITALS: BP 125/78; TEMP 97.9; O2SAT 96
--- NOTE | 2016-11-13 20:27 | DS ---
SUPERVISING PHYSICIAN: Srinivas Patel M.D. DISCHARGE DIAGNOSIS: 1. Postoperative day 13 left hemiarthroplasty for acute subcapital fracture of the left femoral neck status post same level fall, tripped on her own shoes, performed by Dr. Reji Bay, orthopedic surgeon, currently on rehab Swing Bed status with anticipation of discharging this coming Wednesday. 2. Recent acute urinary tract infection with Klebsiella pneumoniae being treated with Keflex. 3. Significant hyperkalemia being treated with Kayexalate with anticipation of repeating potassium level in the morning. 4. History of chronic tremors. 5. History of mild aortic stenosis. 6. History of acute renal injury with acute renal insufficiency showing improvement as treatment course has continued with hypotension probable initial etiology, possibly as a complication secondary to meropenem having being treated for Klebsiella pneumoniae urinary tract infection showing improvement prior to discharge and admission to Swing Bed. HISTORY OF PRESENT ILLNESS: This is an 81-year-old female patient who presented to the hospital on the date of her prior admission after falling in her bedroom over her 's golf shoes. She was brought to the Emergency Room and her hip x-ray per radiologic interpretation showed a subcapital left femoral neck fracture with approximately 2 cm proximal displacement of the distal fracture fragment. Dr. Bay was consulted for surgical intervention. She had a left hemiarthroplasty for that subacute fracture. She came through her intraoperative period without problems. She developed a urinary tract infection while in the hospital. Her urinalysis grew out Klebsiella pneumoniae. She received 2 units of packed red blood cells as well secondary to postoperative blood loss. Prior to admission to Swing Bed, her laboratories had stabilized. She completed her Acute Care stay with her physical therapy rehabilitation and conditioning and required admission to Swing Bed for continued strengthening and conditioning as she continued antibiotic therapy as well with physical therapy. She completed an additional 5 days of antibiotic therapy with Keflex. She was started on 10 mg of Xarelto for a 28 day course prior to admission to Swing Bed. She was admitted to Swing Bed on 11/06/16. LABORATORY: Admission CBC on Swing Bed admission showed hemoglobin 10.9, hematocrit 34.6, platelet count 426,000. White count was normal at 7.2. Differential was within normal limits. Chemistries initially on admission to [facility] showed potassium 5.3, otherwise electrolytes were within normal limits. BUN was slightly elevated at 21, creatinine 1.1. Liver functions showed to be within normal limits. Calcium 7.8. Additional labs prior to discharge show her electrolytes had normalized. Potassium had returned to normal at 4.3 after Kayexalate. BUN was 16, creatinine 1.1. A repeat urinalysis showed to be within normal limits on admission to Swing Bed. She had no additional radiographic studies while on Swing Bed. HOSPITAL COURSE: Ms. Lira was admitted as noted in the History of Present Illness to Swing Bed. She continued with physical therapy and conditioning and did well. She was noted to have a slightly elevated potassium. She was given Kayexalate which she tolerated well and her laboratory studies normalized prior to discharge. She continues with antibiotic therapy with Keflex and finished a 5 day course prior to discharge. She was no longer showing any symptoms with regards to urinary tract infection and was felt physically and clinically stable enough to be discharged to continue with treatment in the outpatient setting. PLAN: Ms. Lira was discharged on 11/13/16 with instructions to followup with Dr. Bay on 11/23/16 at 9:30 AM and her primary care physician, Dr. Caballero, on 11/26 at 1400. She was to resume her home medications as directed and to start all new medications as instructed. She was to return to the hospital should she have any concerning symptoms or any worsening of her condition. New prescriptions at discharge included: 1. Tylenol with codeine #3, 1 every 4 hours as needed for pain, #20. 2. Xarelto 10 mg daily, #20. Diet at discharge is to resume her usual diet. Activity was ambulate only with a walker as per Physical Therapy. Condition at discharge was improved and stable. [facility][id number] [facility]
== END 2016-11-13 12:50 | disposition home health service (06) | DRG 560 ==
LOC: MS 12:27 → UNDOADMIN 12:27 → MS 11-11 06:30
PROVIDERS: ADMIT Family Medicine; ATTEND Nurse Practitioner Acute Care
DX: S72.012D Unspecified intracapsular fracture of left femur, subsequent encounter for closed fracture with routine healing (principal); N39.0 Urinary tract infection, site not specified; E87.5 Hyperkalemia; I35.0 Nonrheumatic aortic (valve) stenosis; G25.0 Essential tremor; B96.1 Klebsiella pneumoniae [K. pneumoniae] as the cause of diseases classified elsewhere; Z96.642 Presence of left artificial hip joint

== ENCOUNTER → 2016-11-17 | Outpatient (CLI) | payer MEDICARE, OTHER | END | disposition home or self-care (01) | LOC: GMAL 14:41 | PROVIDERS: ATTEND Family Medicine | DX: N39.0 Urinary tract infection, site not specified (principal) ==

== ENCOUNTER → 2016-12-17 | Outpatient (CLI) | payer MEDICARE, OTHER | END | disposition home or self-care (01) | LOC: GMAL 10:38 | PROVIDERS: ATTEND Family Medicine | DX: Z79.899 Other long term (current) drug therapy (principal); D64.9 Anemia, unspecified ==

== ENCOUNTER → 2017-08-17 | Outpatient (CLI) | payer OTHER | LOC: GMAL 10:34 | PROVIDERS: ATTEND Family Medicine | DX: D51.3 Other dietary vitamin B12 deficiency anemia (principal); E55.9 Vitamin D deficiency, unspecified; R53.83 Other fatigue ==

== ENCOUNTER 2018-07-26 06:00 | Inpatient (IN) | payer OTHER ==
[2018-07-26] MEDS ORDERED: LEVALBUTEROL NEBS 1.25 MG/3 ML VIAL NEB ONE ×2 (06:19→06:28)
[2018-07-26] MEDS ORDERED: IPRATROPIUM BROMIDE NEBS 0.5 MG/2.5 ML VIAL NEB ONE ×2 (06:25→06:31)
--- NOTE | 2018-07-26 06:34 | ED.PDOC ---
History of Present Illness - General Chief Complaint: Respiratory Problem Stated Complaint: coughing, SOB Time Seen by Provider: 07/26/18 06:28 Source: patient Exam Limitations: no limitations - History of Present Illness Initial Comments: PT PRESENTS WITH SOB AND PRODUCTIVE COUGH FOR THE PAST 5 DAYS THAT BECAME ACUTELY WORSE THIS AM. PT STATES THAT SHE HAS ALSO HAD FEVER AND CHILLS. PT DENIES, CHEST PAIN, OR EDEMA. PT HAS NO PREVIOUS HISTORY OF CARDIAC OR PULMONARY DISEASE. Timing/Duration: 1 week, getting worse Severity: moderate Possible Cause: unknown cause Improving Factors: nothing Worsening Factors: nothing Associated Symptoms: cough, fever Respiratory Risk Factors: no cause identified Allergies/Adverse Reactions: Allergies NO KNOWN ALLERGY Allergy (Verified 07/26/18 06:26) Home Medications: Ambulatory Orders ALPRAZolam [Xanax] 0.5 mg PO TID 10/29/16 Gabapentin [Neurontin] 300 mg PO TID 11/06/16 Review of Systems - Review of Systems Constitutional: States: chills, fever EENTM: Denies: nose congestion, throat pain Respiratory: States: see HPI, cough, short of breath Cardiology: Denies: chest pain, edema, palpitations Gastrointestinal/Abdominal: Denies: abdominal pain, nausea, vomiting Genitourinary: Denies: dysuria, frequency Musculoskeletal: Denies: joint pain, joint swelling Skin: Denies: dryness, lesions Neurological: Denies: headache, numbness, paresthesia Endocrine: States: no symptoms reported Hematologic/Lymphatic: States: no symptoms reported Past Medical History (General) - Patient Medical History Hx Seizures: No Hx Stroke: No Hx Dementia: No Hx Asthma: No Hx of COPD: No Hx Cardiac Disorders: No Hx Congestive Heart Failure: No Hx Pacemaker: No Hx Hypertension: No Hx Thyroid Disease: No Hx Diabetes: No Hx Gastroesophageal Reflux: No Hx Renal Disease: No Hx Cancer: No Hx of HIV: No Hx Hepatitis C: No Hx MRSA: No Hx Other - free text: ESSENTIAL TREMOR Surgical History: other - Vaccination History Hx Tetanus, Diphtheria Vaccination: No Hx Influenza Vaccination: Yes Hx Pneumococcal Vaccination: No - Social History Hx Tobacco Use: No Hx Alcohol Use: No Hx Substance Use: No Hx Physical Abuse: No Hx Emotional Abuse: No Family Medical History - Family History Mother Family History: Unknown Physical Exam - Physical Exam General Appearance: Alert, No apparent distress, Well Developed, Well Groomed, Well Hydrated, Well Nourished Eyes, Ears, Nose, Throat Exam: normal ENT inspection Neck: full range of motion, supple Respiratory: no respiratory distress, decreased breath sounds, rales, wheezing Cardiovascular/Chest: no edema, no murmur, tachycardia Gastrointestinal/Abdominal: non tender, soft Extremity: non-tender, normal inspection, no pedal edema Neurologic: alert, normal mood/affect, oriented x 3 Skin Exam: normal color, warm/dry Progress - Progress Progress: 07/26/18 07:07 PT REPORTS SOME IMPROVEMENT IN DYSPNEA AFTER XOPENEX/IPRATROPIUM NEB. BREATH SOUNDS INCREASED. FAINT WHEEZE ON LEFT PERSISTS. LABS AND DIAGNOSTICS DISCUSSED. BP NOW 90SYTOLIC. WILL ORDER FLUID BOLUS OVER 2 HOURS AND PLAN TO ADMIT. - Results/Orders Results/Orders: Laboratory Tests 07/26/18 07/26/18 07/26/18 06:25 06:25 06:25 WBC 8.6 RBC 4.13 L Hgb 12.1 Hct 37.5 MCV 90.8 MCH 29.4 MCHC 32.3 L RDW 13.9 Plt Count 223 MPV 7.1 L Absolute Neuts (auto) 6.90 H Absolute Lymphs (auto) 0.90 L Absolute Monos (auto) 0.70 Absolute Eos (auto) 0.10 Absolute Basos (auto) 0.00 Neutrophils % 79.5 H Lymphocytes % 11.0 L Monocytes % 8.2 Eosinophils % 0.7 L Basophils % 0.6 Sodium 138 Potassium 3.8 Chloride 102 Carbon Dioxide 23 Anion Gap 16.8 BUN 25 H Creatinine 0.96 BUN/Creatinine Ratio 26.0 H Random Glucose 125 H Serum Osmolality 281.6 Lactic Acid 1.1 Calcium 8.4 Total Bilirubin 0.8 AST 16 ALT < 8 L Alkaline Phosphatase 64 Creatine Kinase CK-MB (CK-2) CK-MB (CK-2) % Troponin I B-Natriuretic Peptide 214.0 H* Serum Total Protein 7.3 Albumin 3.4 Globulin 3.9 H Albumin/Globulin Ratio 0.9 L 07/26/18 06:25 WBC RBC Hgb Hct MCV MCH MCHC RDW Plt Count MPV Absolute Neuts (auto) Absolute Lymphs (auto) Absolute Monos (auto) Absolute Eos (auto) Absolute Basos (auto) Neutrophils % Lymphocytes % Monocytes % Eosinophils % Basophils % Sodium Potassium Chloride Carbon Dioxide Anion Gap BUN Creatinine BUN/Creatinine Ratio Random Glucose Serum Osmolality Lactic Acid Calcium Total Bilirubin AST ALT Alkaline Phosphatase Creatine Kinase 32 CK-MB (CK-2) 1.0 CK-MB (CK-2) % Not Reportable Troponin I < 0.02 B-Natriuretic Peptide Serum Total Protein Albumin Globulin Albumin/Globulin Ratio - EKG/XRAY/CT EKG: Sinus - @99BPM, NL INTERVALS, LAD, POOR R WAVE PROGRESSION, no ST T wave changes, Unchanged from - PREVIOU FROM 10/29/2016 XRAY: chest - LLL ATELECTASIS VS INFILTRATE Departure - Departure Clinical Impression: LLL pneumonia, Dyspnea, Hypotension, Dehydration Disposition: Admit Patient Condition: Fair Departure Forms: ED Discharge - Pt. Copy, Patient Portal Self Enrollment Referrals: Stanislaw Caballero III, MD [Primary Care Provider] - 1-2 Weeks Home Medications: Ambulatory Orders ALPRAZolam [Xanax] 0.5 mg PO TID 10/29/16 Gabapentin [Neurontin] 300 mg PO TID 11/06/16 Decision To Admit - Decistion To Admit Decision to Admit Reason: Admit from ER Decision to Admit Date: 07/26/18 Decision to Admit Time: 07:54 - CASE DISCUSSED WITH LORENA LINDER NP WHO AGREES TO ADMIT
[2018-07-26] MEDS ORDERED: SODIUM CHLORIDE 0.9% 1000ML 1,000 ML ONE (06:59)
--- NOTE | 2018-07-26 07:00 | RAD ---
CHEST 07/26/2018 CLINICAL HISTORY: Shortness of breath, cough, and fever. COMPARISON: Chest 10/31/2016. TECHNIQUE: [AP] Chest. FINDINGS: Heart is normal in size. Minimal aortic atherosclerosis. There is left lower lobe atelectasis/scar. Right lung is clear. No pneumothorax or pleural fluid. There is generalized mild thoracic spondylosis. Normal soft tissues. IMPRESSION: 1. Left lower lobe atelectasis/scar. Senescent aorta. No acute disease. Electronically signed by: aTty Lockwood DO 07/26/2018 6:57 AM CDT
[2018-07-26] MEDS ORDERED: cefTRIAXone SODIUM 1 GM in SODIUM CHL 0.9% 50ML MIN-BAG+ 50 ML IVPB ONE (07:06)
[2018-07-26] MEDS ORDERED: AZITHROMYCIN IV 500 MG in SODIUM CHLORIDE 0.9% 250ML 250 ML IVPB ONE (07:06)
[2018-07-26] MEDS ORDERED: SODIUM CHLORIDE 0.9% 1000ML 1,000 ML IVS ONE (07:07)
[2018-07-26] MEDS ORDERED: SODIUM CHL 0.9% 50ML MIN-BAG+ 50 ML IVPB ONE (07:15)
[2018-07-26] MEDS ORDERED: cefTRIAXone SODIUM 1 GM VIAL ONE (07:15)
[2018-07-26] MEDS ORDERED: AZITHROMYCIN IV 500 MG VIAL IVPB ONE (07:16)
[2018-07-26] MEDS ORDERED: SODIUM CHLORIDE 0.9% 250ML 250 ML ONE (07:16)
--- NOTE | 2018-07-26 08:25 | HP ---
SUPERVISING PHYSICIAN: Ángel Hernandez M.D. CHIEF COMPLAINT: Shortness of breath and cough. HISTORY OF PRESENT ILLNESS: Ms. Lira is an 82 year-old female patient who presented to the Emergency Room today complaining of increasing shortness of breath and a productive cough just slowly becoming worse over the last 5 days. She notes this morning it was significantly worse where she was actually so short of breath that she could hardly ambulate and asked her to bring her to the E. R. She notes that she has had some fever at home but had not actually taken an actual temperature. She was denying any actual chest pains or any other complaints. She has no significant history of cardiac or pulmonary disease. Vital signs on admission in the E. R. showed that she had a low-grade temperature of 99.5. She was tachycardic at 110 and mildly hypotensive at 91/61, respirations were showing anywhere from 20 to 24, satting 93 on nasal cannula at 2.5 liters at rest. The patient is now O2 dependent. Laboratory studies showed a white count of 8,600 but a left shift. Chemistry showed an elevated BNP at 214, troponin was less than 0.02. Chest x-ray in the E. R. per radiology interpretation showed left lower lobe atelectasis or scarring. The patient is now going to be admitted for left lower lobe pneumonia community acquired with concerns for sepsis. PAST MEDICAL HISTORY: 1. Aortic stenosis diagnosed in 2016. Last echocardiogram showed grade 1 diastolic dysfunction with mild aortic stenosis in July 2017 with an ejection fraction of 60% 2. Essential tremors. 3. History of detached retina. 4. Previous broken right wrist. PAST SURGICAL HISTORY: 1. Detached retina surgery in the . 2. Fracture repair of the left elbow in 2012. 3. Hip fracture with hemiarthroplasty in 2017. HOME MEDICATIONS: 1. Xanax 1 mg t.i.d. as needed. 2. Gabapentin 300 mg q.i.d. ALLERGIES. ALLERGIES: NO KNOWN DRUG FAMILY HISTORY: Father in his 50s due to abdominal aortic aneurysm rupture. Mother at age 91 from advanced age. 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 She is . She lives in [place], [place]. She has 4 children. She has never smoked tobacco and does not drink alcohol. REVIEW OF SYSTEMS: CONSTITUTIONAL: Positive for fevers, chills, general malaise. HEENT: Negative for any sinus congestion, ear aches, sore throat. Positive for history of retinal detachment with decreased vision. RESPIRATORY: Positive for increasing cough with purulent sputum. CARDIOVASCULAR: Denies any chest pains, edema, palpitations or tachycardia. GASTROINTESTINAL: Denies any nausea, vomiting, diarrhea or constipation or abdominal pain. GENITOURINARY: Denies any dysuria, hematuria, increased frequency. MUSCULOSKELETAL: Denies any joint pain, joint swelling. SKIN: Denies any lesions or rashes. NEUROLOGIC: Denies any headaches, numbness, paresthesias, seizures, ataxia. PHYSICAL EXAMINATION: VITAL SIGNS: Temperature 99.5, pulse 110, blood pressure 91/61, respirations 20 to 25, saturation 93% on 2.5 liters nasal cannula at rest. Weight is 73.5 kg. GENERAL: On admission to the Medical/Surgical floor the patient is resting comfortably, appears to be in no acute distress. She is well hydrated and well nourished. HEENT: Tympanic membranes are clear bilaterally. Oropharynx is pink and moist without any lesions. NECK: Supple, non-tender. Full range of motion. No jugular venous distention. CHEST: Lung sounds are decreased throughout with no obvious rales or rhonchi. She did have some mild inspiratory and expiratory wheezing. CARDIOVASCULAR: Regular rate and rhythm without appreciable murmurs, gallops, or rubs. ABDOMEN: Soft, non-tender. Positive bowel sounds. EXTREMITIES: Without any clubbing, cyanosis or edema. NEUROLOGIC: She is alert and oriented times three. LABORATORY: White count 8,600, hemoglobin 12.1, hematocrit 37.5, platelet count 223,000. Differential did show a left shift. Chemistries showed normal electrolytes with potassium 3.8, BUN 25, creatinine 0.96, glucose 125, lactic acid 1.1. Liver functions all within normal limits. BNP was slightly elevated at 214. Troponin less than 0.02. Urinalysis was pending. MICROBIOLOGY: Sputum culture is pending. Blood cultures I pending. RADIOLOGY: Chest x-ray in the E. R. per radiology interpretation showed left lower lobe atelectasis or scarring. ASSESSMENT: 1. Left lower lobe pneumonia, community acquired. 2. History of aortic stenosis with last echocardiogram in July 2017 showing a grade 1 diastolic dysfunction and an ejection fraction of 60%. 3. Essential tremors. 4. History of detached retina. PLAN: Ms. Lira is going to be admitted for initiation of treatment for pneumonia. She will be started on azithromycin and Rocephin. She will be on DVT prophylaxis per protocol. She will be on aggressive pulmonary hygiene with q.i.d. Xopenex treatments. Will await sputum and blood culture results to further target antibiotic therapy. Will anticipate her length of stay to be 2 to 3 days. Until she can transition to outpatient management will continue to monitor and treat as needed. [facility][id number] [facility]
[2018-07-26] MEDS ORDERED: MAGNESIUM HYDROXIDE 30 ML UD PO PRN (09:52)
[2018-07-26] MEDS ORDERED: SODIUM CHLORIDE 0.9% (FLUSH) 10 ML SYG IV PRN (09:52)
[2018-07-26] MEDS ORDERED: LEVALBUTEROL NEBS 1.25 MG/3 ML VIAL INH PRN (09:52)
[2018-07-26] MEDS ORDERED: ONDANSETRON INJ 4 MG/2 ML VIAL IV PRN (09:52)
[2018-07-26] MEDS: LEVALBUTEROL NEBS 1.25 MG/3 ML VIAL INH SCH ×3 (13:27→20:09)
[2018-07-26] MEDS: ALPRAZolam 0.5 MG TAB PO SCH ×2 (13:58→21:08)
[2018-07-26] MEDS: GABAPENTIN 300 MG CAP PO SCH ×2 (13:58→21:08)
[2018-07-26] MEDS: IV SET AND CAP CHANGE INJ INJ SCH (14:00)
[2018-07-26] MEDS ORDERED: SODIUM CHLORIDE 0.9% 500ML 500 ML IVS ONE (14:04)
[2018-07-26] MEDS: KCL 20MEQ/0.45% NS 1,000 ML IVS PRN (14:59)
[2018-07-26] MEDS ORDERED: PANTOPRAZOLE SODIUM IV 40 MG VIAL ONE (19:10)
[2018-07-26] MEDS ORDERED: ENOXAPARIN SODIUM 40 MG/0.4 ML SYG SUBCU ONE (21:37)
[2018-07-26] MEDS: ENOXAPARIN SODIUM 40 MG/0.4 ML SYG SUBCU SCH (21:39)
[2018-07-27] MEDS: KCL 20MEQ/0.45% NS 1,000 ML IVS PRN ×2 (02:18→17:57)
[2018-07-27] MEDS: PANTOPRAZOLE SODIUM IV 40 MG VIAL IV SCH (06:11)
--- NOTE | 2018-07-27 07:22 | RAD ---
EXAM DESCRIPTION: Chest,2 Views CLINICAL HISTORY: 82 years Female, Pneumonia COMPARISON: July 26, 2018. TECHNIQUE: PA and lateral radiographs of the chest were obtained. FINDINGS: The trachea appears midline. The cardiomediastinal silhouette is within normal limits. The pulmonary vasculature appears unremarkable. Interval development of right lower lobe airspace opacification concerning for underlying pneumonia. Interval development of small right pleural effusion is also noted. Bibasilar atelectatic changes are again seen. IMPRESSION: 1. Interval development of right lower lobe airspace opacification concerning for underlying pneumonia. Small right pleural effusion. Electronically signed by: Daniel Sheriff MD 07/27/2018 7:18 AM CDT
[2018-07-27] MEDS ORDERED: SODIUM CHL 0.9% 50ML MIN-BAG+ 50 ML IVPB ONE (07:39)
[2018-07-27] MEDS ORDERED: cefTRIAXone SODIUM 1 GM VIAL ONE (07:39)
[2018-07-27] MEDS: ALPRAZolam 0.5 MG TAB PO SCH ×3 (08:11→21:01)
[2018-07-27] MEDS: cefTRIAXone SODIUM 1 GM in SODIUM CHL 0.9% 50ML MIN-BAG+ 50 ML IVPB SCH (08:11)
[2018-07-27] MEDS: GABAPENTIN 300 MG CAP PO SCH ×4 (08:11→21:01)
[2018-07-27] MEDS: ACETAMINOPHEN 325 MG TAB PO PRN (08:28)
[2018-07-27] MEDS: LEVALBUTEROL NEBS 1.25 MG/3 ML VIAL INH SCH (08:54)
[2018-07-27] MEDS ORDERED: AZITHROMYCIN IV 500 MG VIAL IVPB ONE (09:23)
[2018-07-27] MEDS ORDERED: SODIUM CHLORIDE 0.9% 250ML 250 ML ONE (09:23)
[2018-07-27] MEDS: AZITHROMYCIN IV 500 MG in SODIUM CHLORIDE 0.9% 250ML 250 ML IVPB SCH (09:33)
[2018-07-27] MEDS: POLYETHYLENE GLYCOL 3350 17 GM PCKT PO SCH (10:00)
--- NOTE | 2018-07-27 10:40 | PN ---
SUPERVISING PHYSICIAN: Rush Hernandez MD DATE: 07/27/18 SUBJECTIVE: The patient is sitting up in her bed. Her shortness of breath is improved. She still has a mild cough, but denies chest pain, nausea or vomiting. She also does have chronic constipation. OBJECTIVE: VITAL SIGNS: Temperature 98.2. Heart rate 82. Blood pressure 129/80. Respiratory rate 18. O2 saturation 96% on 2 liters nasal cannula. RESPIRATORY: A few scattered rhonchi throughout. No wheezing or crackles. CARDIAC: Regular rate and rhythm. GASTROINTESTINAL: Abdomen is soft, nondistended, nontender. Bowel sounds are positive. NEUROLOGIC: Awake, alert and oriented times three. LABORATORY: Her CBC is basically within normal limits. Chemistry show electrolytes within normal limits. Glucose slightly elevated at 106. Calcium slightly low at 7.8. Urine culture and sputum culture are pending. Preliminary blood cultures show no growth after 24 hours. Her chest x-ray shows interval development of right lower lobe airspace opacification concerning for underlying pneumonia, small right pleural effusion. All other labs and films have been reviewed via the EMR. ASSESSMENT: 1. Left lower lobe pneumonia, community acquired. 2. History of aortic stenosis with last echocardiogram in July 2017 showing a grade 1 diastolic dysfunction and an ejection fraction of 60%. 3. Essential tremors. 4. History of detached retina. PLAN: We will continue present supportive care. We will continue with aggressive pulmonary hygiene as well as continue with antibiotics per pneumonia protocol. We will encourage good pulmonary hygiene. I will also order some MiraLAX daily for her constipation. Repeat lab and chest x-ray in the morning. We will continue to monitor the patient closely and follow as needed. [facility][id number] [facility]
[2018-07-27] MEDS: LEVALBUTEROL NEBS 1.25 MG/3 ML VIAL NEB SCH ×3 (12:55→20:32)
[2018-07-27] MEDS ORDERED: ENOXAPARIN SODIUM 40 MG/0.4 ML SYG SUBCU ONE (19:10)
[2018-07-27] MEDS: ENOXAPARIN SODIUM 40 MG/0.4 ML SYG SUBCU SCH (21:02)
[2018-07-28] MEDS: ACETAMINOPHEN 325 MG TAB PO PRN ×2 (02:30→07:30)
[2018-07-28] MEDS: KCL 20MEQ/0.45% NS 1,000 ML IVS PRN (05:20)
[2018-07-28] MEDS: PANTOPRAZOLE SODIUM IV 40 MG VIAL IV SCH (06:11)
[2018-07-28] MEDS ORDERED: SODIUM CHL 0.9% 50ML MIN-BAG+ 50 ML IVPB ONE (07:04)
[2018-07-28] MEDS ORDERED: cefTRIAXone SODIUM 1 GM VIAL ONE (07:05)
--- NOTE | 2018-07-28 07:54 | RAD ---
EXAM DESCRIPTION: Chest,2 Views CLINICAL HISTORY: 82 years Female, pna COMPARISON: 07/27/2018 IMPRESSION: The heart remains mildly enlarged, with borderline central pulmonary vascular congestion. Atherosclerosis in the thoracic aorta. The lungs are hyperexpanded. Right lower lobe airspace consolidation, likely pneumonia, again demonstrated. The findings are not significant changed. Left basilar atelectasis or scarring also unchanged. Small bilateral pleural effusions. No pneumothorax. No acute osseous abnormality. Electronically signed by: Gray Rodriguez MD 07/28/2018 7:50 AM CDT
[2018-07-28] MEDS: ALPRAZolam 0.5 MG TAB PO SCH ×3 (08:18→20:23)
[2018-07-28] MEDS: POLYETHYLENE GLYCOL 3350 17 GM PCKT PO SCH (08:18)
[2018-07-28] MEDS: GABAPENTIN 300 MG CAP PO SCH ×4 (08:18→20:23)
[2018-07-28] MEDS: ENOXAPARIN SODIUM 40 MG/0.4 ML SYG SUBCU SCH (08:18)
[2018-07-28] MEDS: cefTRIAXone SODIUM 1 GM in SODIUM CHL 0.9% 50ML MIN-BAG+ 50 ML IVPB SCH (08:18)
[2018-07-28] MEDS: LEVALBUTEROL NEBS 1.25 MG/3 ML VIAL NEB SCH ×4 (08:30→19:40)
[2018-07-28] MEDS ORDERED: AZITHROMYCIN IV 500 MG VIAL IVPB ONE (09:39)
[2018-07-28] MEDS ORDERED: SODIUM CHLORIDE 0.9% 250ML 250 ML ONE (09:39)
[2018-07-28] MEDS: AZITHROMYCIN IV 500 MG in SODIUM CHLORIDE 0.9% 250ML 250 ML IVPB SCH (10:08)
--- NOTE | 2018-07-28 11:56 | PN ---
SUPERVISING PHYSICIAN: Rush Hernandez MD DATE: 07/28/18 SUBJECTIVE: The patient is sleeping in her hospital bed. Her is at the bedside. She awakens easily. Earlier, she had complaints of a headache, but it is now gone. She also complains of some shortness of breath with exertion. She realizes that is part of her disease process. She denies nausea, vomiting, constipation or chest pain. OBJECTIVE: VITAL SIGNS: Temperature 98.4. Heart rate 84. Blood pressure 122/76. Respiratory rate 16. O2 saturation 94% on 2 liters nasal cannula. RESPIRATORY: Scattered rhonchi throughout. Diminished at the bases. CARDIAC: Regular rate and rhythm. GASTROINTESTINAL: Abdomen is soft, nondistended, nontender. Bowel sounds are positive. NEUROLOGIC: Awake, alert and oriented times three. LABORATORY: WBC 6,300, hemoglobin 10.4, hematocrit 32.2. Electrolytes are basically within normal limits with the exception of her potassium is slightly high at 5.1 and calcium of 7.7. Preliminary sputum cultures are negative. Preliminary blood cultures show no growth after 48 hours. Urine culture is pending. Chest x-ray shows mildly enlarged heart with borderline central pulmonary vascular congestion, atherosclerosis in the thoracic aorta. The lungs are hyperexpanded. Right lower lobe airspace consolidation, likely pneumonia, again demonstrated. Findings are not significantly changed. Left basilar atelectasis with scarring also unchanged. Small bilateral pleural effusions. No pneumothorax. All other labs and films have been reviewed via the EMR. ASSESSMENT: 1. Left lower lobe pneumonia, community acquired. 2. History of aortic stenosis with last echocardiogram in July 2017 showing a grade 1 diastolic dysfunction and an ejection fraction of 60%. 3. Essential tremors. 4. History of detached retina. PLAN: We will continue present supportive care including good pulmonary hygiene and her previous antibiotics. I have encouraged her to continue her aggressive pulmonary hygiene including getting up and ambulating. If she is able to, she can ask for assistance. I have also consulted physical therapy tomorrow. I have ordered lab and x-rays in the morning. We will continue to monitor the patient closely and follow as needed. [facility][id number] [facility]
[2018-07-28] MEDS ORDERED: PANTOPRAZOLE SODIUM IV 40 MG VIAL ONE (19:12)
[2018-07-29] MEDS: ACETAMINOPHEN 325 MG TAB PO PRN ×2 (02:43→08:13)
[2018-07-29] MEDS ORDERED: IBUPROFEN 200 MG TAB PO ONE (04:03)
[2018-07-29] MEDS ORDERED: IBUPROFEN 400 MG TAB ONE (04:03)
[2018-07-29] MEDS: PANTOPRAZOLE SODIUM IV 40 MG VIAL IV SCH (06:25)
[2018-07-29] MEDS ORDERED: PANTOPRAZOLE SODIUM TAB 40 MG PO SCH (06:30)
[2018-07-29] MEDS ORDERED: cefTRIAXone SODIUM 1 GM VIAL ONE (07:21)
[2018-07-29] MEDS ORDERED: SODIUM CHL 0.9% 50ML MIN-BAG+ 50 ML IVPB ONE (07:21)
--- NOTE | 2018-07-29 08:05 | RAD ---
EXAM DESCRIPTION: Chest,2 Views CLINICAL HISTORY: pna shortness of breath COMPARISON: July 28, 2018 FINDINGS: Two-view chest x-ray shows cardiomediastinal silhouette and pulmonary vasculature to be within normal limits. The lungs are normally aerated. Chronic appearing increased interstitial markings to the lungs are again seen with more focal interstitial airspace disease in the right lower lobe. Mild linear interstitial thickening in the lingula of the left upper lobe is seen. Blunting of the posterior costophrenic angles is seen bilaterally mildly increased from previous. Moderate disc degenerative changes of the thoracic spine are seen. IMPRESSION: Mild interval increase size of small bilateral pleural effusions. Airspace disease in the right lower lobe and lingula of the left upper lobe suggesting pneumonia and/or atelectasis similar to previous. Electronically signed by: Jeffrey Lopez MD 07/29/2018 8:02 AM CDT
[2018-07-29] MEDS: GABAPENTIN 300 MG CAP PO SCH (08:13)
[2018-07-29] MEDS: ENOXAPARIN SODIUM 40 MG/0.4 ML SYG SUBCU SCH (08:13)
[2018-07-29] MEDS: cefTRIAXone SODIUM 1 GM in SODIUM CHL 0.9% 50ML MIN-BAG+ 50 ML IVPB SCH (08:13)
[2018-07-29] MEDS: POLYETHYLENE GLYCOL 3350 17 GM PCKT PO SCH (08:13)
[2018-07-29] MEDS: ALPRAZolam 0.5 MG TAB PO SCH (08:13)
[2018-07-29] MEDS: LEVALBUTEROL NEBS 1.25 MG/3 ML VIAL NEB SCH ×2 (09:00→11:50)
[2018-07-29] MEDS ORDERED: AZITHROMYCIN IV 500 MG VIAL IVPB ONE (09:27)
[2018-07-29] MEDS ORDERED: SODIUM CHLORIDE 0.9% 250ML 250 ML ONE (09:27)
[2018-07-29] MEDS: AZITHROMYCIN IV 500 MG in SODIUM CHLORIDE 0.9% 250ML 250 ML IVPB SCH (09:36)
[2018-07-29 10:11] VITALS: BP 122/71; TEMP 97.7
[2018-07-29] MEDS: IV SET AND CAP CHANGE INJ INJ SCH (11:36)
[2018-07-29 14:23] VITALS: O2SAT 96
--- NOTE | 2018-08-09 10:09 | DS ---
SUPERVISING PHYSICIAN: Rush Hernandez MD ADMISSION DIAGNOSIS: 1. Left lower lobe pneumonia, community acquired. 2. History of aortic stenosis with last echocardiogram in July 2017 showing a grade 1 diastolic dysfunction and an ejection fraction of 60%. 3. Essential tremors. 4. History of detached retina. DISCHARGE DIAGNOSIS: 1. Left lower lobe pneumonia, community acquired. 2. History of aortic stenosis with last echocardiogram in July 2017 showing a grade 1 diastolic dysfunction and an ejection fraction of 60%. 3. Essential tremors. 4. History of detached retina. REASON FOR HOSPITALIZATION: Ms. Lira is an 82 year-old female patient who presented to the Emergency Room today complaining of increasing shortness of breath and a productive cough just slowly becoming worse over the last 5 days. She notes this morning it was significantly worse where she was actually so short of breath that she could hardly ambulate and asked her to bring her to the E. R. She notes that she has had some fever at home but had not actually taken an actual temperature. She was denying any actual chest pains or any other complaints. She has no significant history of cardiac or pulmonary disease. Vital signs on admission in the E. R. showed that she had a low-grade temperature of 99.5. She was tachycardic at 110 and mildly hypotensive at 91/61, respirations were showing anywhere from 20 to 24, satting 93 on nasal cannula at 2.5 liters at rest. The patient is now O2 dependent. Laboratory studies showed a white count of 8,600 but a left shift. Chemistry showed an elevated BNP at 214, troponin was less than 0.02. Chest x-ray in the E. R. per radiology interpretation showed left lower lobe atelectasis or scarring. The patient is now going to be admitted for left lower lobe pneumonia community acquired with concerns for sepsis. LABORATORY: White count on admission was 8,600. At discharge, 5,500. Hemoglobin 10.5, hematocrit 32.1 at discharge with platelet count 220,000. Differential did show a left shift, but resolved prior to discharge. Chemistries no admission showed normal electrolytes with BUN 25, creatinine 0.96, lactic acid 1.1, calcium 8.4. Magnesium normal at 2. Liver functions all within normal limits. Troponin less than 0.02. BNP elevated at 214. At discharge, potassium 5.4. Other electrolytes were within normal limits. BUN 10, creatinine 0.66, magnesium 2.2. Urinalysis showed trace of lysed blood, positive nitrites, small amount of leukocyte esterase, 10 to 20 WBCs, 1 to 3 RBCs, 3 to 5 epithelial, 1+ bacteria. MICROBIOLOGY: Sputum culture showed no growth at 12 hours. Final culture pending. Urine culture pending at discharge. RADIOLOGY: Chest x-ray on admission per radiologic interpretation showed left lower lobe atelectasis/scarring, no acute disease process. She had multiple x- rays through hospitalization with final x-ray on 07/29/18 per radiologic interpretation of a two-view chest showing mild interval increase in bilateral pleural effusions, airspace disease in the right lower lobe and lingula of the left upper lobe suggesting pneumonia and/or atelectasis, similar to previous exam. EKG on admission showed a normal sinus rhythm, heart rate 99. HOSPITAL COURSE: Ms. Lira was admitted for initiation of treatment for left lower lobe pneumonia. She was started on azithromycin and Rocephin as well as aggressive pulmonary hygiene. She did show good clinical improvement through hospitalization. On day of discharge, she was felt clinically stable enough to continue with outpatient management. PLAN: Ms. Lira was discharged on 07/29/18 with instructions to followup with Dr. Caballero in 7 days or sooner if needed. She was to resume her home medications as instructed and told to return to the hospital should she have any concerning or worsening of symptoms. Diet at discharge was regular diet as tolerated. Activity to increase as tolerated. DISCHARGE ASSESSMENT: VITAL SIGNS: Stable with temperature 97.7. Pulse 91. Blood pressure 122/71. Respirations 14. Saturation 97% on 3 liters nasal cannula. GENERAL: The patient was resting comfortably and in no acute distress. CHEST: Lung sounds slightly diminished towards both bases with no obvious rales, rhonchi or wheezing. HEART: Regular rate and rhythm without appreciable murmurs, gallops, or rubs. ABDOMEN: Soft, nontender. Positive bowel sounds. EXTREMITIES: No cyanosis, clubbing or edema. NEUROLOGIC: Alert and oriented times 3. DISPOSITION: The patient was discharged to care of family members. CONDITION AT DISCHARGE: Stable and improving as noted above. #[id number] [facility]
== END 2018-07-29 14:20 | disposition home or self-care (01) | DRG 871 ==
LOC: ER 06:00 → MS 08:25
PROVIDERS: ADMIT Nurse Practitioner Family; ATTEND Nurse Practitioner Family
DX: A41.9 Sepsis, unspecified organism (principal); J18.9 Pneumonia, unspecified organism; G25.0 Essential tremor; I95.9 Hypotension, unspecified; K59.09 Other constipation; E86.0 Dehydration; Z99.81 Dependence on supplemental oxygen; Z96.649 Presence of unspecified artificial hip joint

== ENCOUNTER 2019-04-30 11:27 | Observation (INO) | payer OTHER ==
--- NOTE | 2019-04-30 11:38 | ED.PDOC ---
History of Present Illness - General Chief Complaint: Syncope/Near Syncope Stated Complaint: syncope Time Seen by Provider: 04/30/19 11:32 Source: patient, RN notes reviewed, Vital Signs reviewed Additional Information: this is a patient that present to the er if an episode of alleged syncope. [facility] since today is [facility] last day. patient stood up to shake hands and then she cant remember anything. unknown for how long she was out. patient stated that she felt great, denied any chest pain, shortness of breath or abdominal pain. patient stated that she has not previous history of stroke, AL's Endorses essential tremors and history of pneumonia last year patient is complaining of lower back pain after fall - History of Present Illness Timing/Prior Episodes: no prior history, single episode today Precipitating Factors: none Context: standing Loss of Consciousness: unsure Current Symptoms: back to normal Allergies/Adverse Reactions: Allergies NO KNOWN ALLERGY Allergy (Verified 07/26/18 09:06) Home Medications: Ambulatory Orders ALPRAZolam [Xanax] 1 mg PO TID PRN 10/29/16 Gabapentin 300 mg PO QID 07/26/18 Review of Systems - Review of Systems Constitutional: Denies: chills, diaphoresis, fever, malaise EENTM: Denies: eye pain, blurred vision, tearing, ear pain, ear discharge, nose pain, nose congestion, throat pain, throat swelling, mouth pain, mouth swelling Respiratory: Denies: cough, orthopnea, short of breath, stridor Cardiology: Denies: chest pain, edema, palpitations, syncope Gastrointestinal/Abdominal: Denies: abdominal pain, constipation, diarrhea, nausea Genitourinary: Denies: discharge, dysuria, frequency, hematuria Musculoskeletal: Denies: back pain, gout, joint pain, joint swelling, muscle pain, muscle stiffness, neck pain Skin: Denies: change in color, change in hair/nails, dryness, lesions, lumps, rash, other Neurological: Denies: anxiety, depressed, emotional problems, headache, n umbness, paresthesia, pre-existing deficit, seizure, tingling, tremors, weakness Endocrine: Denies: excessive sweating, flushing, intolerance to cold, intolerance to heat, increased hunger, increased thirst, increased urine, unexplained weight gain, unexplained weight loss Hematologic/Lymphatic: Denies: anemia, blood clots, easy bleeding, easy brui sing, swollen glands All other Systems: Reviewed and Negative Past Medical History (General) - Patient Medical History Hx Seizures: No Hx Stroke: No Hx Dementia: No Hx Asthma: No Hx of COPD: No Hx Cardiac Disorders: No Hx Congestive Heart Failure: No Hx Pacemaker: No Hx Hypertension: No Hx Thyroid Disease: No Hx Diabetes: No Hx Gastroesophageal Reflux: No Hx Renal Disease: No Hx Cancer: No Hx of HIV: No Hx Hepatitis C: No Hx MRSA: No - Vaccination History Hx Tetanus, Diphtheria Vaccination: No Hx Influenza Vaccination: Yes Hx Pneumococcal Vaccination: No - Social History Hx Tobacco Use: No Hx Alcohol Use: No Hx Substance Use: No Hx Physical Abuse: No Hx Emotional Abuse: No Physical Exam - Physical Exam General Appearance: Alert, Well Developed, Well Groomed, Well Hydrated, Well Nourished Eyes, Ears, Nose, Throat Exam: PERRL/EOMI, normal ENT inspection, TMs normal Neck: non-tender, full range of motion, supple, normal inspection Cardiovascular/Respiratory: regular rate, rhythm, no M/R/G, normal peripheral pulses, no JVD, normal breath sounds, no respiratory distress Gastrointestinal/Abdominal: normal bowel sounds, non tender, soft, no organomegaly, no pulsatile mass Back Exam: vertebral tenderness - lumbar spine tenderness with no step offs Extremity: normal range of motion, non-tender, normal inspection, no pedal edema, no calf tenderness Mental Status: alert, oriented x 3 screen roller Exam: normal hearing, normal speech, PERRL Coordination/Gait: normal finger to nose, normal gait Motor/Sensory: no motor deficit, no sensory deficit, no pronator drift, negative Babinski's sign Skin Exam: normal color, warm/dry Lymphatic: no adenopathy Progress - Progress Progress: 04/30/19 11:40 this is a patient that presents with a syncope, patient was [facility] and the episode happened when she stood up. patient is completely asymptomatic and with no neurological deficits. Patient ekg showed normal sinus rhythm, heart rate at 93. no acute ischemic changes, and no st depression and no st elevations. will get labs and head ct 04/30/19 12:50 patient hemoglobin was low, and patient potassium, normal troponins but an extremely elevated d-dimer. since PE have know to cause syncope by creating a VQ mismatch I just ordered a CTA to rule out pulmonary embolism 04/30/19 13:[address] did show any intracranial abnormalities, chest xray no pneumonia and lumbar spine ct did not show any evidence of compression fractures 04/30/19 14:[address] chest did not show any evidence of pe. this patient has not had any neurological defcitis, and no complaint will be consulted with the hospitalist for observation and evaluation for syncope - EKG/XRAY/CT CT Ordered: Yes - ct head, ct lumbar spine and ct chest all negative Departure - Departure Clinical Impression: Syncope Qualifiers: Syncope type: unspecified Qualified Code(s): R55 - Syncope and collapse Disposition: Admit Patient Condition: Fair Referrals: Stanislaw Caballero III, MD [Primary Care Provider] - 1-2 Weeks Home Medications: Ambulatory Orders ALPRAZolam [Xanax] 1 mg PO TID PRN 10/29/16 Gabapentin 300 mg PO QID 07/26/18 Decision To Admit - Decistion To Admit Decision to Admit Date: 04/30/19 Decision to Admit Time: 14:10
--- NOTE | 2019-04-30 12:25 | CT ---
PROCEDURE: CT Head Without Intravenous Contrast CLINICAL INDICATION: The patient is 83 years old and is Female; fall, syncope MAIN TECHNIQUE: Axial computed tomography images of the head/brain without intravenous contrast. Sagittal and coronal reformatted images were created and reviewed. This CT exam was performed using one or more of the following dose reduction techniques: automated exposure control, adjustment of the mA and/or kV according to patient size, and/or use of iterative reconstruction technique. COMPARISON: No relevant prior studies available. FINDINGS: ARTIFACTS: Patient's LEFT earring causes mild beam hardening artifact. BRAIN: Early infarcts within the first 12 hours may not be visible on noncontrast CT. The green/white matter differentiation is intact. NO intra-or extra-axial fluid collections are seen. There is no appreciable sequela of small vessel ischemic disease (microangiopathy). MIDLINE SHIFT: There is NO midline shift. VENTRICLES: No acute abnormality identified. No hydrocephalus. BONES/JOINTS: There is hyperostosis frontalis interna. No calvarial fracture. SOFT TISSUES: The soft tissues of the scalp are unremarkable. VASCULATURE: Intracranial vascular calcifications are noted. SINUSES: The visualized paranasal sinuses are clear. MASTOID AIR CELLS: Unremarkable as visualized. No mastoid effusion. ORBITS: There is a RIGHT globe scleral banding. There has been bilateral cataract surgery. IMPRESSION: No acute intracranial abnormality is identified. Electronically signed by: Esequiel Don MD 04/30/2019 12:23 PM [employer]ISHER [employer]OCKS
--- NOTE | 2019-04-30 12:27 | RAD ---
PROCEDURE: XR Chest, 1 View CLINICAL INDICATION: The patient is 83 years old and is Female; syncope MAIN TECHNIQUE: Frontal view of the chest. COMPARISON: 03/24/2019 FINDINGS: LUNGS: Minimal LEFT lower lobe scarring again noted. Lungs are hyperinflated. PLEURAL SPACE: There is no pneumothorax. There are no pleural effusions noted. HEART: The heart size is normal. MEDIASTINUM: The mediastinal contour is normal. BONES/JOINTS: There are degenerative changes of the spine identified. Left-sided drop shoulder again noted. TUBES, LINES AND DEVICES: There are electrocardiogram leads present. IMPRESSION: No active disease is seen in the chest. Electronically signed by: Esequiel Don MD 04/30/2019 12:25 PM SALES STRATEGY MANAGER
--- NOTE | 2019-04-30 12:44 | CT ---
PROCEDURE: CT Lumbar Spine Without Intravenous Contrast CLINICAL INDICATION: The patient is 83 years old and is Female; fall MAIN TECHNIQUE: Axial computed tomography images of the lumbar spine without intravenous contrast. Sagittal and coronal reformatted images were created and reviewed. This CT exam was performed using one or more of the following dose reduction techniques: automated exposure control, adjustment of the mA and/or kV according to patient size, and/or use of iterative reconstruction technique. COMPARISON: Plain films of the lumbar spine from 03/09/2016 FINDINGS: VERTEBRAE: There is NO fracture or malalignment identified in the lumbar spine. There are 5 non-rib bearing lumbar vertebral bodies. Vertebral body heights are maintained. There is persistent grade 1 anterolisthesis of L4 on L5. The spinous processes and the transverse processes are intact. DISCS/SPINAL CANAL/NEURAL FORAMINA: There is NO large disc herniation with multiple disc bulges at the lower levels. There are degenerative changes of the sacroiliac joints. There is stable severe disc space narrowing at L2-L3 and L5-S1 with moderate disc space narrowing at L3-L4. There are continued areas of significant spinal stenosis suspected at L2-L3 and L3-L4. SOFT TISSUES: Unremarkable. VASCULATURE: There are atheromatous vascular calcifications of the aortoiliac system. KIDNEYS AND URETERS: Large RIGHT lower pole renal cyst is noted. OTHER FINDINGS: There is NO paravertebral hematoma. IMPRESSION: NO fracture or malalignment identified in the lumbar spine. Electronically signed by: Esequiel Don MD 04/30/2019 12:42 PM THERAPEUTIC SPECIALIST
--- NOTE | 2019-04-30 14:06 | CT ---
EXAM DESCRIPTION: CTA chest with contrast ; PE protocol: CLINICAL HISTORY: Rule out pulmonary embolism COMPARISON: Chest one view April 30, 2019 TECHNIQUE: Acquisition of axial images from the base of the neck the upper abdomen following the administration of iodinated contrast, utilizing a multi detector CT. AEC, mA/kV adjustment by patient size, and/or iterative reconstruction technique were used, per departmental dose-optimization program. Sagittal and coronal reformations are obtained. Subsequently computer-generated 3D reconstructions and/or maximum intensity projection imaging was performed. FINDINGS: Negative for intrinsic filling defect in the main pulmonary trunk, the right and left main pulmonary arteries, or the proximal segmental branches. The aorta is normal in caliber and appears unremarkable. Ascending aorta measures 3.9 cm in diameter. The heart and mediastinum are normal. Negative for mediastinal or hilar lymphadenopathy. The lungs are clear without consolidation or effusion. Discoid atelectasis seen in the left lower lobe. Presence of a fracture of the body of the sternum is noted with mild deformity. This is best appreciated on the sagittal series image 84. Presence of a 5.9 x 5.2 cm splenic cyst is noted.. IMPRESSION: Negative for pulmonary embolism. Fracture of the body of the sternum of unknown age. Presence of a splenic cyst. Electronically signed by: Monica Sim MD 04/30/2019 2:05 PM CAD SPECIALIST
--- NOTE | 2019-04-30 15:00 | HP ---
SUPERVISING PHYSICIAN: Omega Serrano MD CHIEF COMPLAINT: Near syncopal episode. HISTORY OF PRESENT ILLNESS: This is an 83-year-old female patient who presented to the Emergency Room today after a [facility]opal episode at [facility]. She stood up to shake hands with fellow [facility] goers and she states she became "woozy" and slumped to the ground. She had not had any previous signs or symptoms of dizziness or weakness. There was no chest pain, shortness of breath or abdominal pain. She did admit that she had not had any breakfast this morning and she did take her pills on an empty stomach. After she came to the Emergency Room, she continued to say she had no chest pain, no shortness of breath, no nausea or vomiting, no dizziness or weakness. Her initial vital signs showed temperature 97.3, heart rate 88, blood pressure 84/55, respiratory rate 18, O2 saturation 92% on room air. Lab studies were done. WBCs were 5,800, hemoglobin 11.8, hematocrit 35.7. D-dimer was elevated at 3,640. Electrolytes were basically within normal limits with the exception of her potassium slightly low at 3.5, BUN 19. Troponin 0.02. Head CT showed no acute intracranial abnormality. Her chest x-ray showed no active disease. Lumbar spine CT showed no fracture or malalignment identified. Chest/thorax CTA showed for pulmonary embolism, fracture of the body of the sternum of unknown age, presence of a splenic cyst. She received no medications in the Emergency Room. I was called for hospital admission. PAST MEDICAL HISTORY: 1. Aortic stenosis. 2. Essential tremors. 3. History of detached retina. 4. Fractured right wrist. 5. Left hip fracture. PAST SURGICAL HISTORY: 1. Retinal surgery after detached retina. 2. Fracture repair of left elbow. 3. Hemiarthroplasty of left hip in 2017. HOME MEDICATIONS: 1. Xanax. 2. Gabapentin. ALLERGIES: NO KNOWN DRUG ALLERGIES. 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 She is . She lives in [place]. She denies any tobacco, ETOH or illicit drug use. REVIEW OF SYSTEMS: GENERAL: Negative for fever, fatigue or weight changes. HEENT: Negative for sinus symptoms, ear pain, vision changes or sore throat. RESPIRATORY: Negative for wheezing, coughing or shortness of breath. CARDIAC: Negative for chest pain, palpitations or tachycardia. GASTROINTESTINAL: Negative for nausea, vomiting, diarrhea, constipation. GENITOURINARY: Negative for hematuria, dysuria or polyuria. MUSCULOSKELETAL: Positive for chronic left hip pain that has been going on for over a year. It is feels like it is "out of place." Negative for arthralgias, myalgias. SKIN: Negative for lesions or rashes. NEUROLOGIC: Negative for headache, dizziness or seizures. PHYSICAL EXAMINATION: VITAL SIGNS: Temperature 98. Heart rate 87. Blood pressure 133/81. Respiratory rate 18. O2 saturation 93% on room air. GENERAL: This is an 83-year-old female patient who is lying in her hospital bed. She is in no acute distress. HEENT: Normocephalic, atraumatic. Pupils are equal and reactive. Oropharynx is clear. NECK: Supple without mass. RESPIRATORY: Essentially clear to auscultation bilaterally. CHEST: There is equal rise and fall of the chest with inspiration and expiration. CARDIOVASCULAR: Regular rate and rhythm. GASTROINTESTINAL: Abdomen is soft, nondistended, nontender. Bowel sounds are positive. SKIN: Warm and dry. EXTREMITIES: No cyanosis, clubbing or edema. NEUROLOGIC: Awake, alert and oriented times three. Cranial nerves II-XII are grossly intact as tested. LABORATORY: Labs and films are as per history of present illness. IMPRESSION: 1. Syncopal episode with no loss of consciousness and no apparent traumatic injury. 2. Essential tremors. 3. History of aortic stenosis. 4. History of left hip pain status post hemiarthroplasty in 2017, unrelated to today's episode. PLAN: The patient will be placed in observation. I will monitor neuro checks closely. I will have an echocardiogram and carotid studies done in the morning. I will also do a hip x-ray. She is on Lovenox for DVT prophylaxis. She may need to go home on at least an aspirin. Most likely, the patient had syncopal episode due to lack of eating, but we will rule out any other issues. Her home medications have been restarted. If she clinically remains stable, she should be able to be discharged tomorrow with close followup with Dr. Caballero, her primary care physician. We will continue to monitor the patient closely and follow as needed. #[id number] [facility]
[2019-04-30] MEDS ORDERED: ACETAMINOPHEN 325 MG TAB PO PRN (15:35)
[2019-04-30] MEDS ORDERED: SODIUM CHLORIDE 0.9% (FLUSH) 10 ML SYG IV PRN (15:35)
[2019-04-30] MEDS ORDERED: ONDANSETRON INJ 4 MG/2 ML VIAL IV PRN (15:35)
[2019-04-30] MEDS ORDERED: ALPRAZolam 0.5 MG TAB PO PRN (15:35)
[2019-04-30] MEDS ORDERED: IV SET AND CAP CHANGE INJ INJ SCH (16:00)
[2019-04-30] MEDS ORDERED: ENOXAPARIN SODIUM 40 MG/0.4 ML SYG SUBCU SCH (16:00)
[2019-04-30] MEDS: GABAPENTIN 300 MG CAP PO SCH ×2 (17:19→20:54)
[2019-04-30] MEDS: SODIUM CHLORIDE 0.9% (FLUSH) 10 ML SYG IV SCH (20:55)
[2019-05-01 06:09] VITALS: TEMP 98.2
[2019-05-01] MEDS: SODIUM CHLORIDE 0.9% (FLUSH) 10 ML SYG IV SCH (08:00)
[2019-05-01] MEDS: GABAPENTIN 300 MG CAP PO SCH (08:00)
--- NOTE | 2019-05-01 09:58 | RAD ---
EXAM DESCRIPTION: Hip,Left 2 Views CLINICAL HISTORY: 83 years Female, left hip pain COMPARISON: None available. TECHNIQUE: 2 views of the left hip. FINDINGS: The visualized bones are poorly mineralized.No acute fracture or dislocation. Changes of left total hip arthroplasty. The soft tissues appear grossly unremarkable. IMPRESSION: Changes of left total hip arthroplasty. No acute fracture or dislocation. Electronically signed by: Daniel Sheriff MD 05/01/2019 9:56 AM [facility]
[2019-05-01 10:04] VITALS: BP 122/72; O2SAT 94
--- NOTE | 2019-05-01 10:27 | US ---
EXAM DESCRIPTION: Carotid Duplex: ULTRASOUND. CLINICAL HISTORY: 83 years Female syncope COMPARISON: CTA chest April 30. TECHNIQUE: Transcutaneous scanning utilizing green-scale and Doppler modes to evaluate the bilateral carotid systems and vertebral arteries. Percentage of diameter of stenosis or no stenosis recorded will be based upon NASCET criteria. FINDINGS: Peak systolic/end diastolic (CM-Sec) CCA Right 79/16 Left 82/15. ICA Right proximal 64/21, distal 43/14/. Left proximal 41/14, mid 61/20. Vertebral Right 31 Left 26. ECA (PS Only) Right 66 left 66. ICA/CCA peak systolic ratio: Right 0.8 Left 0.7 ICA/CCA end diastolic ratio: Right 1.3 Left 1.3 Vertebral arteries: antegrade flow. Comments: Bilateral atherosclerotic calcification predominantly at the common carotid bifurcations. Area and diameter stenosis of the left common carotid bulb approximately 30%. IMPRESSION: 1. Doppler evaluation of the bilateral carotid systems and vertebral arteries shows no hemodynamically significant stenoses. 2. No significant amount of plaque seen in the carotid arteries bilaterally. Bilateral vertebral arteries showed antegrade-cephalad flow. Electronically signed by: Alex Candelario MD 05/01/2019 10:26 AM [facility]
--- NOTE | 2019-05-02 08:25 | DS ---
SUPERVISING PHYSICIAN: Rush Hernandez MD ADMISSION DIAGNOSIS: 1. Syncopal episode with no loss of consciousness and no apparent traumatic injury. 2. Essential tremors. 3. History of aortic stenosis. 4. History of left hip pain status post hemiarthroplasty in 2017, unrelated to today's episode. DISCHARGE DIAGNOSIS: 1. Presyncopal episode with no obvious loss of consciousness and no apparent traumatic injury, probably due to vasovagal response. 2. Elevated D-dimer with negative CT of the chest for pulmonary embolism, uncertain etiology, possibly related to acute fall with no other acute findings. 3. History of aortic stenosis diagnosed in July of 2016, noted to be mild in severity, possibly contributing to #1, needing continued followup as an outpatient with no new findings on current echocardiogram. 4. Essential tremors. 5. History of aortic stenosis. 6. History of left hip pain status post hemiarthroplasty in 2017 with no acute findings on radiographic studies. REASON FOR HOSPITALIZATION : This is an 83-year-old female patient who presented to the Emergency Room today after a syncopal episode at [employer]. She stood up to shake hands with fellow [employer] goers and she states she became "woozy" and slumped to the ground. She had not had any previous signs or symptoms of dizziness or weakness. There was no chest pain, shortness of breath or abdominal pain. She did admit that she had not had any breakfast this morning and she did take her pills on an empty stomach. After she came to the Emergency Room, she continued to say she had no chest pain, no shortness of breath, no nausea or vomiting, no dizziness or weakness. Her initial vital signs showed temperature 97.3, heart rate 88, blood pressure 84/55, respiratory rate 18, O2 saturation 92% on room air. Lab studies were done. WBCs were 5,800, hemoglobin 11.8, hematocrit 35.7. D-dimer was elevated at 3,640. Electrolytes were basically within normal limits with the exception of her potassium slightly low at 3.5, BUN 19. Troponin 0.02. Head CT showed no acute intracranial abnormality. Her chest x-ray showed no active disease. Lumbar spine CT showed no fracture or malalignment identified. Chest/thorax CTA showed for pulmonary embolism, fracture of the body of the sternum of unknown age, presence of a splenic cyst. She received no medications in the Emergency Room. The patient was placed in observation stable condition. LABORATORY: White count on admission was 5,800 and at discharge was 4,700. Hemoglobin was stable at 11.9 and hematocrit 35.9. Placated 190,000. Differential was without a left shift. Coagulation studies showed a D-dimer of 3640. Chemistries showed normal electrolytes on discharge with BUN 23, creatinine 1.0, calcium 8.8, magnesium 1.9. Liver functions were within normal limits. Lipid panel was within normal limits. RADIOLOGY: CT of the head showed no intracranial abnormalities per radiologic interpretation. Chest x-ray per radiologic interpretation showed no active disease in the chest. She also had a lumbar spine CT and per radiologic interpretation showed no fracture identified in lumbar spine. She had an x-ray of the hip with changes noted in left hip with arthroplasty, but no acute fracture or dislocation. Chest thoracic CTA per radiologic interpretation was negative for pulmonary embolism. There was note of fracture of the body sternum of unknown age with presence of a splenic cyst. She had bilateral carotid artery studies per radiologic interpretation indicating bilateral carotid system and vertebral arteries with no hemodynamically significant stenosis. There was no significant amount of plaque seen in the carotid arteries. There was note of bilateral vertebral arteries showing antegrade-cephalad flow. Echocardiogram showed normal systolic function with ejection fraction 55%. There was note of possible aortic stenosis with elevated P gradient pressures noted and inability to rule out aortic stenosis, but no obvious regurgitation. HOSPITAL COURSE: Ms. Lira was admitted for a near syncopal episode at [facility]. She was monitored overnight with cardiac telemetry as well as close neurological assessments with no other findings. She had no recurrence of symptoms. Her workup with carotid arteries, x-rays and echocardiogram were without any significant findings acutely and it was felt she was clinically stable enough to continue with outpatient management. DISCHARGE PHYSICAL ASSESSMENT: VITAL SIGNS: Temperature 98.2. Pulse 84. Blood pressure 122/72. Respirations 16. Saturation 94% on room air. GENERAL: The patient was resting comfortably and appeared to be in no acute distress. CHEST: Clear to auscultation with no notable rhonchi, wheezing or rales. HEART: Regular rate and rhythm without notable murmurs, gallops, or rubs. ABDOMEN: Soft, nontender, positive bowel sounds. EXTREMITIES: No cyanosis, clubbing or edema. No calf tenderness. She had some tenderness over the left hip, but that was x-rayed without any acute findings and is chronic, per her. NEUROLOGIC: Alert and oriented x3. PLAN: Ms. Lira was discharged on 05/01/19 with instructions to followup with Dr. Caballero in 7 days or sooner if needed. In regards to her elevated D-dimer, she had no obvious injuries other than she had some left hip pain which was negative on the workup. Again, CTA of the chest was negative. She had no calf tenderness and no other indication of DVT. She will certainly need close followup in outpatient management. She also had no shortness of breath during hospitalization. She was to resume her home medications as instructed. She was to return to the Emergency Room as needed. Diet on discharge was regular diet as tolerated. Activity to increase as tolerated. No new prescriptions were given on discharge. All other medications were continued as prior to hospitalization which included: 1. Gabapentin 300 mg q.i.d. 2. Xanax 1 mg q.d. as needed. CONDITION ON DISCHARGE: Stable and improved. DISPOSITION: The patient was discharged home. #[id number] [facility]
== END 2019-05-01 12:52 | disposition home or self-care (01) ==
LOC: ER 11:27 → MS 14:57
PROVIDERS: ADMIT Nurse Practitioner Acute Care; ATTEND Nurse Practitioner Family
DX: R55 Syncope and collapse (principal); R79.89 Other specified abnormal findings of blood chemistry; M54.5 Low back pain; E87.6 Hypokalemia; G25.0 Essential tremor; I35.0 Nonrheumatic aortic (valve) stenosis; M25.552 Pain in left hip; N28.1 Cyst of kidney, acquired; D73.4 Cyst of spleen; I34.0 Nonrheumatic mitral (valve) insufficiency; I36.1 Nonrheumatic tricuspid (valve) insufficiency; Z79.899 Other long term (current) drug therapy; Z96.642 Presence of left artificial hip joint
CPT/HCPCS: 96372; J1650; 85379; 80048; 80053; 80061; 36415; 85025 ×2; 83735; 84443; 84484; 71045; 73502; 70450; 72131; 71275; 93880; 94760 ×2; 97116; 97162; 99285; 93306; 93005; G0378

== ENCOUNTER → 2019-05-19 | Outpatient (CLI) | payer OTHER ==
--- NOTE | 2019-05-22 08:33 | MRI ---
EXAM DESCRIPTION: Lumbar Spine w/o Contrast : Magnetic Resonance Imaging. CLINICAL HISTORY: LOW BACK PAIN COMPARISON: LUMBAR TECHNIQUE: Multiplanar, multiple standard sequences, non contrast MRI, lumbar spine. FINDINGS: Compression deformity of the L1 vertebral body. Posterior height of the vertebral body is 1.9 cm compared to 2.2 cm at T12. Anterior height is 1.8 cm compared to 2.1 cm at T12. Height of the mid vertebral body is 0.8 cm compared to 1.9 cm at T12. Retropulsion of the posterior mid cortex of the vertebral body 4 mm. Not impressing on the conus which terminates at this level. AP canal diameter 12 mm. Fracture line at the base of the right pedicle, with marrow edema also in the base of the pedicle. Incomplete fracture line base of the left pedicle. Marrow edema also in the left pedicle. L5-S1: The disc is well visualized on axial T2 series 501, image 3. Moderate disc space loss. More on the right with moderate endplate reactive changes. Anterior and right-sided disc spur complex bulging. 4 mm retrolisthesis with disc spur complex encroaching on the thecal sac and also partial effacement of the left subarticular recess. Minimal degenerative hypertrophy of the posterior flavum ligaments and facet joints (posterior elements). No canal stenosis. Bilateral mild foraminal narrowing, more on the left. L4-L5: Disc desiccation with disc space maintained. Grade 1 anterolisthesis 2 mm. No posterior bulging. Moderate degenerative hypertrophy of the posterior elements impinging the lateral thecal sac. AP canal diameter 10 mm. Early spondylosis right side endplate. Mild to moderate right foraminal narrowing and mild left foraminal narrowing. L3-L4: Moderate disc space loss more posterior. Grade 1 retrolisthesis 2 mm. Mild to moderate degenerative hypertrophy of the posterior elements. AP canal diameter 9 mm. Tiny disc herniation versus facet joint fragment encroaching on the lateral ventral left spinal canal and abutting the exiting left L3 nerve. Moderate to severe narrowing on the left foramen. Endplate and facet spurs causing right foraminal stenosis. L2-L3: Disc desiccation and disc space loss. Disc spur complex on the left side with moderate hypertrophy and moderate to severe foraminal narrowing. Moderate right foraminal narrowing. Posterior broad-based disc bulge with midline protrusion impressing on the thecal sac. Moderate degenerative hypertrophy of the posterior elements. AP canal diameter 8 mm. L1-L2: Disc desiccation and elevation into the concave inferior L1 endplate. Posterior disc bulge. Canal is patent. Minimal degenerative hypertrophy of the posterior elements. Borderline left foraminal stenosis and moderate right foraminal narrowing. T12-L1: Disc desiccation with disc descending into the concave superior L1 endplate. Minimal disc bulge to the left of midline with minimal effacement of the left subarticular recess. No compression of the distal cord.. Bilateral foramina are patent. Minimal degenerative hypertrophy of the posterior elements with mild canal narrowing. Upper lumbar dextroscoliosis. Paravertebral soft tissues minimal edema at the L1 level.. Distal cord normal signal and caliber. Well circumscribed hyperintense T1 and T2 hemangiomas L3 vertebral body L4 vertebral body L5 vertebral body and T10 vertebral body. Otherwise normal marrow signal in the remaining vertebral bodies and the posterior elements. Vertebral bodies are not compressed at any level. IMPRESSION: 1. At least 50% compression of the L1 vertebral body since the prior CT scan, with posterior retropulsion but no compression of the conus medullaris. Complete versus incomplete compression fractures at the base of both pedicles with concern for instability. 2. Multiple levels of spondylosis, degenerative hypertrophy of the flavum ligaments and facet joints, and bulging discs. 3. Retrolisthesis L5-S1. Partial effacement of the left subarticular recess by disc spur complex. Possible encroachment left S1 nerve. 4. Multifactorial borderline mild central canal stenosis L4-L5. Mild to moderate right foraminal narrowing. 5. Small herniated L3-L4 disc fragment versus left facet joint fragment abutting the descending left L3 nerve above the left foramen. Spondylosis and disc spur complex on the right resulting in foraminal stenosis. Correlate for right L3 radiculopathy. Mild central canal stenosis. 6. Posterior broad-based L2-L3 disc bulge with midline protrusion. Moderate canal stenosis. 7. Borderline L1-L2 left foraminal stenosis with disc spur complex and facet encroaching on the left foramen. Correlate for left L1 radiculopathy. CRITICAL COMMUNICATION: The critical value was discussed directly via phone by Dr. Candelario, with Dr. Stanislaw Caballero at approximately 748 hours, on May 22, 2019. Electronically signed by: Alex Candelario MD 05/22/2019 8:31 AM [employer]
== END ==
LOC: MRI 10:01
PROVIDERS: ATTEND Family Medicine
DX: S32.010A Wedge compression fracture of first lumbar vertebra, initial encounter for closed fracture (principal); M47.896 Other spondylosis, lumbar region; M43.17 Spondylolisthesis, lumbosacral region; M48.061 Spinal stenosis, lumbar region without neurogenic claudication; M51.86 Other intervertebral disc disorders, lumbar region; M51.35 Other intervertebral disc degeneration, thoracolumbar region; M51.26 Other intervertebral disc displacement, lumbar region; M24.28 Disorder of ligament, vertebrae; M25.78 Osteophyte, vertebrae